=== PATIENT | female | born 2005 | race Caucasian/White ===

== ENCOUNTER 2024-07-21 20:34 | Outpatient (REF) | payer OTHER, SELFPAY ==
[2024-07-26 13:08] LABS: Age Gdln ACOG Testing Note (.); IGP, rfx Aptima HPV ASCU Note (.)
== END 2024-07-21 20:35 | disposition home or self-care (01) ==
LOC: LAB 20:34
PROVIDERS: PCP Family Medicine; Visit Provider Obstetrics & Gynecology
DX: Z01.419 Encounter for gynecological examination (general) (routine) without abnormal findings (principal)
CPT/HCPCS: 88175

== ENCOUNTER 2025-03-06 21:08 | Emergency (ER) | payer OTHER, SELFPAY ==
[2025-03-06 21:10] VITALS: BP 142/80; PULSE 80; TEMP 37.1; O2SAT 96; BMI 21.3
--- OUTSIDE RECORDS SUMMARY | 2025-03-06 21:15 | XMS_ITS | Clinical Summary ---
Author Organization [facility] Address [address] [place] [address] Care Team Providers Care Cooperer Name Role Phone Michelle Hackett NP Unavailable [phone] Allergies Active Allergy Reactions Criticality Noted Date Comments Penicillin G Rash Low 01/30/2024 Penicillins Rash Low 07/09/2023 Prednisone 11/27/2023 Other Reaction(s): Hives Medications Lo Loestrin Fe 1 MG-10 MCG / 10 MCG tabletIndications: Encounter for contraceptive management, unspecified type TAKE 1 TABLET BY MOUTH ONCE DAILY IN THE MORNING 28 tablet 3 Active Hospital, Clinic, or Other Facility Administered Medication Ordered Dose Route Frequency Start Date End Date Status methylPREDNISolone acetate (DEPO-Medrol) injection 20 mgIndications:Trigge r index finger of right hand 20 mg IX Once PRN Procedure 02/17/2025 02/17/2025 Ended Active Problems No known active problems Encounters Date Type Department Care Team Description 02/16/2025 2:30 PM EDT Office Visit [facility] [address] [place] [address] Raoul Gottlieb NP Trigger index finger of right hand (Primary Dx); Finger pain, right 02/16/2025 Bamboo flowsheet [facility] [place] [place] [address] Raoul Gottlieb NP 02/16/2025 Travel from Last 3 Months Family History Medical History Relation Name Comments Cancer Other 1 Both sides Hypertension Other 1 Both sides Thyroid disease Other 2 Dad's side Relation Name Status Comments Other 1 Both sides Other 2 Dad's side Social History Tobacco Use Types Packs/Day Years Used Date Smoking Tobacco: Never Assessed Comments No Sex and Gender Information Value Date Recorded Sex Assigned at Not on file Legal Sex Female 6:50 PM EDT Gender Identity Not on file Sexual Orientation Not on file Last Filed Vital Signs Vital Sign Reading Time Taken Comments Blood Pressure 100/68 07/21/2024 9:54 AM EDT Pulse - - Temperature - - Respiratory Rate - - Oxygen Saturation - - Inhaled Oxygen Concentration - - Weight 64.4 kg (142 lb) 07/21/2024 9:54 AM EDT Height 162.6 cm (5' 4 ) 11/27/2023 11:02 AM EST Body Mass Index 24.37 11/27/2023 11:02 AM EST Plan of Treatment Upcoming Encounters Date Type Department Care Team (Late st Contact Info) Description 07/23/2025 8:30 AM EDT Office Visit [facility] [address] [place] [address] Sonu Miller, DO [address] [place] [address] Procedures Procedure Name Priority Date/Time Associated Diagnosis Comments CT INJECTION 1 TENDON SHEATH/LIGAMENT APONEUROSIS Routine 02/17/2025 9:44 AM EDT Trigger index finger of right hand from Last 3 Months Results * CT INJECTION 1 TENDON SHEATH/LIGAMENT APONEUROSIS (02/17/2025 9:44 AM EDT) Narrative Raoul Gottlieb NP - 02/17/2025 9:44 AM EDT Raoul Gottlieb NP 02/17/2025 9:48 AM Hand / UE Inj/Asp: R index A1 for trigger finger on 02/17/2025 9:44 AM Indications: pain Details: 24 G needle, volar approach Medications: 20 mg methylPREDNISolone acetate 40 MG/ML Outcome: tolerated well, no immediate complications Site cleaned with isopropyl alcohol Procedure, treatment alternatives, risks and benefits explained, specific risks discussed. Consent was given by the patient. us Raoul Gottlieb NP IN CLINIC/BEDSIDE ORDERABLES Fi nal Result from Last 3 Months Insurance * Guarantor: Gregoria Doran Account Type Relation to Patient Date of Phone Billing Address Personal/Family Self 2005 [address] [place] [address] [employer] Care Teams Cooperer Relationship Specialty Start Date End Date Michelle Hackett NP [address] [place] [address] Referring Physician Family Medicine 08/25/24
--- OUTSIDE RECORDS SUMMARY | 2025-03-06 21:16 | XMS_ITS | CCD ---
Author Organization [facility] CliniSymd Care Team Providers Care [employer] Instrument Repairer Name Role Phone Svetlana Medrano Unavailable Suri Jiang Unavailable PADILLA ., DR ROMMEL Suarez Primary Care Unavailable PADILLA ., DR ROMMEL Suarez Consulting Unavailable PADILLA ., DR ROMMEL Suarez Attending Unavailable PADILLA ., DR ROMMEL Suarez Admitting Unavailable PADILLA ., DR ROMMEL Suarez Primary Care Unavailable PADILLA ., DR ROMMEL Suarez Consulting Unavailable PADILLA ., DR ROMMEL Suarez Attending Unavailable PADILLA ., DR ROMMEL Suarez Admitting Unavailable PADILLA ., DR ROMMEL Suarez Admitting Unavailable PADILLA ., DR ROMMEL Suarez Primary Care Unavailable PADILLA ., DR ROMMEL Suarez Consulting Unavailable PADILLA ., DR ROMMEL Suarez Attending Unavailable Arabella Lazcano Unavailable Allan Svetlana Unavailable Hector Ramos Attending Unavailab Hector Florian Admitting Unavailab Neftali Kimble Attending Unavailable Neftali Clayton Attending Unavailable Neftali Clayton Attending Unavailable Neftali Clayton Attending Unavailable Neftali Clayton Attending Unavailable Julieth Fernandez Attending Unavailable Neftali Clayton Attending Unavailable Julieth Fernandez Attending Unavailable Neftali Clayton Attending Unavailable Neftali Clayton Attending Unavailable Julieth Fernandez Attending Unavailable Neftali Clayton Attending Unavailable Julieth Fernandez Attending Unavailable Neftali Clayton Attending Unavailable Neftali Clayton MD Primary Care Provider [phone] Lew FOOTE, Michelle Johnson Unavailable SLEMA LORD Attending Unavailable ROCHELLE MILLER Attending Unavailable AGUILA ULLOA Attending Unavailable Allergies Allergy Classification Reported Allergen(s) Allergy Type Date of Onset Reaction(s) Facility (1 source) Penicillin V Drug Allergy rash [facility] Other (3 sources) Penicillins Drug allergy (disorder) 3 rash [facility] Repository (7 sources) Penicillin; Translations: [penicillin] Drug Allergy rash [facility] Repository (5 sources) predniSONE; Translations: [predniSONE] Drug Allergy 5 hives [facility] Repository (1 source) Penicillins Drug allergy (disorder) 4 [facility] Repository (1 source) predniSONE Drug Allergy 4 [facility] Repository (10 sources) Penicillin G Drug Allergy 4 [facility] (10 sources) Penicillins Propensity to adverse reactions 3 Rash [facility] Work Phone: (10 sources) Prednisone Propensity to adverse reactions 4 [facility] Healthcare Medications Current Medications Medication Drug Class(es) Dates Sig (Normalized) Sig (Original) busPIRone hydrochloride 5 mg oral tablet (4 sources) Start: 08-04-2024 End: 08-28-2024 take 1 tablet by mouth twice daily Buspirone 5 mg tablet Active 5 MG PO Twice daily 60 August 28, 2024 11:13am clindamycin 300 mg oral capsule (2 sources) Lincosamide Antibacterial Start: 10-10-2023 take 1 capsule by mouth every eight hours Clindamycin HCl 300 MG 1 cap(s) Orally tid for 10 day(s) Oct, Active Ethinyl Estradiol / Ferrous fumarate / Norethindrone (17 sources) Estrogen Start: 10-06-2024 take 1 tablet by mouth once daily in the morning Lo Loestrin Fe 1 MG-10 MCG / 10 MCG tablet Indications: Encounter for contraceptive management, unspecified type TAKE 1 TABLET BY MOUTH ONCE DAILY IN THE MORNING 28 tablet 3 10/06/2024 Active Start: 04-17-2024 End: 12-11-2024 take 1 tablet by mouth once daily Norethindrone-E.Estradiol-Iron (Lo Loest rin Fe) 1 mg-10 mcg (24)/10 mcg (2) tablet Discontinued 1 TAB PO Daily April 17, 2024 12:00am December 11, 2024 10:01am Start: 11-27-2023 End: 11-26-2024 take 1 tablet by mouth in the morning norethindrone-ethinyl estradiol-iron (Lo Loestrin Fe) 1 MG-10 MCG / 10 MCG tablet Indications: Encounter for contraceptive management, unspecified type Take 1 tablet by mouth in the morning. Take 1 tablet by mouth daily. 28 tablet 11 11/27/2023 11/26/2024 Active take 1 tablet by nadia th once daily Baljeet Fe 1/20 1-20 MG-MCG TAKE 1 TABLET BY MOUTH ONCE DAILY Oral for 28 Days Active take 1 tablet by nadia th once daily Baljeet Fe 1/20 1-20 MG-MCG TAKE 1 TABLET BY MOUTH ONCE DAILY Oral for 28 Days Active FLUoxetine 10 mg oral capsule (4 sources) Serotonin Reuptake Inhibitor Start: 04-24-2024 End: 05-13-2024 take 1 capsule by mouth once daily Fluoxetine 10 mg capsule Active 10 MG PO Daily 90 90 May 13, 2024 9:41am hydrOXYzine hydrochloride 10 mg oral tablet (6 sources) Antihistamine Start: 11-23-2022 take 1 tablet by mouth twice daily as needed hydrOXYzine HCl 10 MG 1 tablet as needed Orally twice daily for 10 day(s) Nov, Active ibuprofen 800 mg oral tablet (1 source) Nonsteroidal Anti-inflammatory Drug Start: 10-11-2023 take 1 tablet by mouth three times daily at mealtime as needed Ibuprofen 800 MG 1 tablet with food or milk as needed Orally Three times a day for 7 days Oct, Active Levonorgestrel-Ethi nyl Estrad (Twirla) 120-30 mcg/24 hr patch weekly (1 source) Start: 12-29-2024 Levonorgestrel-Et hinyl Estrad (Twirla) 120-30 mcg/24 hr patch weekly Active 1 PATCH TRANSDERML Q7D December 29, 2024 12:00am apply once weekly for 3 weeks of a 4-week cycle montelukast 10 mg oral tablet (2 sources) Leukotriene Receptor Antagonist Start: 05-30-2024 take 1 tablet by mouth once daily Montelukast (Singulair) 10 mg tablet Active 10 MG PO Daily May 30, 2024 12:00am naproxen 500 mg oral tablet (1 source) Nonsteroidal Anti-inflammatory Drug Start: 02-05-2025 take 1 tablet by mouth twice daily as needed for pain Naproxen 500 mg tablet Active 500 MG PO Twice daily as needed for pain 60 February 05, 2025 12:00am Completed/Discontinued Medications Medication Drug Class(es) Dates Sig (Normalized) Sig (Original) azithromycin 250 mg oral tablet (2 sources) Macrolide Antimicrobial Start: 12-11-2024 End: 02-05-2025 Azithromycin 250 mg tablet Discontinued 0 PO daily 6 December 11, 2024 1:00am February 05, 2025 11:19am Take 2 on day 1 and then take 1 for the next 4 days (days 2-5) cefdinir 300 mg oral capsule (2 sources) Cephalosporin Antibacterial Start: 06-05-2024 End: 08-12-2024 take 1 capsule by mouth twice daily Cefdinir 300 mg capsule Discontinued 300 MG PO Twice daily 27 07June 05, 2024 12:00am August 12, 2024 10:00am cephalexin 500 mg oral capsule (9 sources) Cephalosporin Antibacterial Start: 04-18-2023 take 1 capsule by mouth every eight hours Cephalexin 500 MG 1 capsule Orally tid for 10 day(s) Jun, Not-Taking/PRN doxycycline monohydrate 100 mg oral capsule (7 sources) Tetracycline-class Drug Start: 07-04-2022 take 1 capsule by mouth every twelve hours Doxycycline Monohydrate 100 MG 1 capsule Orally every 12 hrs for 7 days Jun, Not-Taking/PRN erythromycin 0.005 mg/mg ophthalmic ointment (2 sources) Macrolide, Macrolide Antimicrobial Start: 04-24-2024 End: 05-13-2024 Erythromycin 5 mg/gram (0.5 %) ointment Discontinued 0.5 INCH EYE-BOTH Twice daily 3.5 April 24, 2024 12:00am May 13, 2024 9:29am escitalopram 20 mg oral tablet (12 sources) Serotonin Reuptake Inhibitor Start: 07-02-2023 End: 07-21-2024 take 1 tablet by mouth once daily Escitalopram Oxalate 20 mg tablet Discontinued 20 MG PO Daily April 17, 2024 12:00am April 24, 2024 9:26am take 1 tablet by nadia once daily as needed Escitalopram Oxalate 10 MG TAKE 1 TABLET BY MOUTH DAILY Oral for 30 Days Not-Taking/PRN 168 hr ethinyl estradiol 0.34751 mg/hr / norelgestromin 0.62404 mg/hr transdermal system (1 source) Progestin, Estrogen Start: 12-11-2024 End: 12-23-2024 Norelgestromin-Ethin.Estradi ol (Zafemy) 150-35 mcg/24 hr patch weekly Discontinued 0 .ROUTE .COMPLEX 3 December 11, 2024 12:52pm December 23, 2024 7:52am APPLY 1 PATCH TO SKIN ONCE WEEKLY FOR 3 WEEKS, OF A 4 WEEK CYCLE. fluticasone propionate 0.05 mg/actuat metered dose nasal spray (3 sources) Corticosteroid Start: 07-16-2023 take 2 spray(s) nasal route once daily as needed Fluticasone Propionate 50 MCG/ACT 2 sprays Nasally Once a day for 14 day(s) Jul, Not-Taking/PRN Start: 07-16-2023 take 2 spray(s) nasa l route once daily Fluticasone Propionate 50 MCG/ACT 2 sprays Nasally Once a day for 14 day(s) Jul, Active 1 ml methylPREDNISolone acetate 40 mg/ml injection (10 sources) Corticosteroid Start: 02-17-2025 End: 02-17-2025 methylPREDNISolone acetate (DEPO-Medrol) injection 20 mg Start: 02-17-2025 End: 02-17-2025 20 mg, Intra-articular, Once PRN Procedure, Starting on Sun02/17/25 at 0944, For 1 dose Start: 08-25-2024 End: 08-25-2024 methylPREDNISolone Acetate (DEPO-Medrol) injection 20 mg Start: 08-25-2024 End: 08-25-2024 20 mg, Once PRN Procedure, S tarting on Sun08/25/24 at 0856, For 1 dose Start: 08-12-2024 End: 08-14-2024 take 1 tablet by mouth once Methylprednisolone (Medrol (Jose)) 4 mg tablets,dose pack Discontinued 0 PO per package directions August 12, 2024 1:00am August 14, 2024 4:06pm PO PER PKG DIR mupirocin 0.02 mg/mg topical ointment (7 sources) RNA Synthetase Inhibitor Antibacterial Start: 07-04-2022 Mupirocin 2 % 1 application to affected area Externally once per day for 7 days Jun, Not-Taking/PRN Norelgestromin-Ethi n.Estradiol (Zafemy) 150-35 mcg/24 hr patch weekly (1 source) Start: 12-23-2024 End: 12-29-2024 Norelgestromin-Ethin.Es tradiol (Zafemy) 150-35 mcg/24 hr patch weekly Discontinued 0 .ROUTE .COMPLEX December 23, 2024 7:52am December 29, 2024 1:06pm APPLY 1 PATCH TO SKIN ONCE WEEKLY FOR 3 WEEKS, OF A 4 WEEK CYCLE. Norelgestromin-Ethi n.Estradiol 150-35 mcg/24 hr patch weekly (2 sources) Start: 12-11-2024 End: 12-11-2024 Norelgestromin-Ethin.Es tradiol 150-35 mcg/24 hr patch weekly Discontinued 1 PATCH TRANSDERML every week December 11, 2024 1:00am December 11, 2024 12:52pm apply once weekly for 3 weeks of a 4-week cycle Start: 12-11-2024 Norelgestromin -Ethin.Estradiol 150-35 mcg/24 hr patch weekly Active 1 PATCH TRANSDERML every week December 11, 2024 1:00am apply once weekly for 3 weeks of a 4-week cycle Nortrel 0.5/35 (28) (7 sources) Nortrel 0.5/35 ( 28) Not-Taking/PRN Nortrel 0.5/35 ( 28) Not-Taking Nortrel 0.5/35 ( 28) Active ondansetron 4 mg oral tablet (6 sources) Serotonin-3 Receptor Antagonist Start: 11-23-2022 take 1 tablet by mouth every eight hours as needed Zofran ODT 4 MG 1 tablet on the tongue and allow to dissolve Orally every 8 hrs as needed for 4 days Nov, Not-Taking/PRN predniSONE 10 mg oral tablet (5 sources) Start: 08-14-2024 End: 12-11-2024 take 0.5 tablet by mouth once daily Prednisone 10 mg tablet Discontinued 10 MG PO daily August 14, 2024 1:00am December 11, 2024 9:34am Take 40 mg for 2 days, 30 mg for 2 days, 20 mg for 2 days, 10 mg for 2 days, 1/2 tablet for 2 days Start: 07-16-2023 take 1 tablet by nadia th every twelve hours predniSONE 20 MG 1 tablet Orally bid for 5 day(s) Jul, Not-Taking/PRN Problems Active Problems Problem Classification Problem Date Documented Date Episodic/Chronic Anxiety disorders (9 sources) Generalized anxiety disorder; Translations: [Generalized anxiety disorder] Chronic Conditions associated with dizziness or vertigo (2 sources) Dizziness; Translations: [Dizziness and giddiness] 04-24-2024 Episodic Contraceptive and procreative management (4 sources) Patient encounter status; Translations: [Encounter for contraceptive management, unspecified] 12-11-2024 Episodic Disorders of teeth and jaw (2 sources) Dental caries, unspecified; Translations: [Other specified disorders of teeth and supporting structures] Episodic E Codes: Natural/environment (1 source) Bitten by cat, initial encounter Episodic Malaise and fatigue (4 sources) Other fatigue; Translations: [OTHER FATIGUE] Onset: 12-04-2022 Episodic Mood disorders (2 sources) Depressive disorder; Translations: [Depression] 04-24-2024 Chronic Nausea and vomiting (1 source) Nausea Episodic Other connective tissue disease (4 sources) Pain in finger of right hand; Translations: [Pain in right finger(s)] 08-24-2024 Episodic Other connective tissue disease (7 sources) Triggering of digit; Translations: [Trigger finger, right index finger] 08-25-2024 Episodic Other connective tissue disease (2 sources) Tendinitis; Translations: [Enthesopathy, unspecified] 08-12-2024 Episodic Other connective tissue disease (1 source) Trigger finger, unspecified finger; Translations: [Trigger finger (acquired)] 02-05-2025 Episodic Other connective tissue disease (1 source) Enthesopathy, unspecified; Translations: [Enthesopathy of unspecified site] 02-05-2025 Episodic Other eye disorders (2 sources) Disorder of eye; Translations: [Other specified disorders of eye and adnexa] 04-24-2024 Episodic Other nutritional; endocrine; and metabolic disorders (2 sources) Overweight in adulthood with body mass index of 25 or more but less than 30; Translations: [Body mass index (BMI) 26.0-26.9, adult] 05-13-2024 Episodic Other screening for suspected conditions (not mental disorders or infectious disease) (4 sources) Encounter for screening for malignant neoplasm of cervix; Translations: [ENC SCREENING MALIG NEOPLASM CERV] Onset: 10-04-2022 Episodic Other upper respiratory disease (2 sources) Seasonal allergy; Translations: [Other seasonal allergic rhinitis] 05-30-2024 Chronic Other upper respiratory infections (4 sources) Maxillary sinusitis; Translations: [Chronic maxillary sinusitis] 06-05-2024 Chronic Other upper respiratory infections (1 source) Acute sinusitis, unspecified Episodic Residual codes; unclassified (2 sources) Flushing; Translations: [Flushing] 04-24-2024 Episodic Skin and subcutaneous tissue infections (3 sources) Cellulitis of unspecified part of limb; Translations: [Cellulitis of left lower limb] Episodic Past or Other Problems Problem Classification Problem Date Documented Da te Episodic/Chronic Immunizations and screening for infectious disease (1 source) Contact with and (suspected) exposure to other viral communicable diseases; Translations: [Contact with and (suspected) exposure to other viral communicable diseases Z20.828] Onset: 07-14-2021 Resolved: 07-14-2021 Episodic Unclassified (1 source) Contact with and (suspected) exposure to covid-19 Z20.822 Results Test Name Value Interpretation Reference Range Facil ity No Panel Informationon 02-17 Selma Lord NP 02/17/2025 9:48 AM Hand / UE Inj/Asp: R index A1 for trigger finger on 02/17/2025 9:44 AM Indications: pain Details: 24 G needle, volar approach Medications: 20 mg methylPREDNISolone acetate 40 MG/ML Outcome: tolerated well, no immediate complications Site cleaned with isopropyl alcohol Procedure, treatment alternatives, risks and benefits explained, specific risks discussed. Consent was given by the patient. [facility] Influenza virus B Ag [Presen ce] in Upper respiratory specimen by Rapid immunoassayon 12-11-2024 FLUBV Ag IA.rapid Ql (Nph) Influenza virus B Ag [Presence] in Upper respiratory specimen by Rapid immunoassay [facility] No Panel Informationon 12-11 Influenza Type A (Rapid) Negative [facility] POC SARS CoV-2 Antigen Negative [facility] No Panel Informationon 08-25 Aguila Ulloa NP 08/25/2024 9:00 AM Tendon Sheath Inj (CPT 33093 Only): R index A1 on 08/25/2024 8:56 AM Indications: pain Details: 25 G needle, volar approach Medications: 20 mg methylPREDNISolone Acetate 20 MG/ML Immediately prior to procedure a time out was called to verify the correct patient, procedure, equipment, community support worker and site/side marked as required. Patient was prepped and draped in the usual sterile fashion. [facility] IGP,APTIMA HPV,AGE GDLNon AGE GDLN ACOG TESTING Note . [facility] Comment on above: TESTS RESULT FLAG UN ITS REF RANGE LAB Clinician Provided Cytology Information Source.............Cervix;Endocervix No. of containers..01 ThinPrep Vial Age Algo ACOG Sherrie... -3 11 FLAG LEGEND: L-Low Normal,H-High Normal,LL-Alert Low,HH-Alert High <-Panic Low,>-Panic High,A-Abnormal,AA-Critical Abnormal Performed at: 01 =G [facility] [id number] Bria Owens MD, IGP, RFX APTIMA HPV ASCU Note . [facility] Comment on above: TESTS RESULT FLAG UN ITS REF RANGE LAB DIAGNOSIS: 02 NEGATIVE FOR INTRAEPITHELIAL LESION OR MALIGNANCY. Specimen adequacy: 02 Satisfactory for evaluation. Endocervical and/or squamous metaplastic cells (endocervical component) are present. Performed by: Jayla Braswell [facility] [place] . 02 Note: Note 02 The Pap smear is a screening test designed to aid in the detection of premalignant and malignant conditions of the uterine cervix. It is not a diagnostic procedure and should not be used as the sole means of detecting cervical cancer. Both false-positive and false-negative reports do occur. Test Methodology: Note 02 This liquid based ThinPrep(R) pap test was screened with the use of an image guided system. . 02 The HPV DNA reflex criteria were not met with this specimen result therefore, no HPV testing was performed. FLAG LEGEND: L-Low Normal,H-High Normal,LL-Alert Low,HH-Alert High <-Panic Low,>-Panic High,A-Abnormal,AA-Critical Abnormal Performed at: [address] [facility] [address] [phone] Bria Owens MD, Performed at: = - [facility] [address] [id number] Sr Community Manager: Bria Owens MD, Phone: [phone] Performed at: [facility] [id number] Sr Community Manager: Bria Owens MD, Phone: [phone] [facility] ENDOCERVIX [facility] Physician Referralon 024 Physician Referral [id number]#1 .00TIFF Normal [facility] Physician Referralon 024 Physician Referral [id number]# 1.00TIFF Normal [facility] Physician Referralon 024 Physician Referral [id number]#1. 00TIFF Normal [facility] Ambulatory Visit Summaryon 11-28-2022 Ambulatory Visit Summary STEPHON KHAN :2005 Visit Date:09/27/2023 Ambulatory Visit Instructions Your Diagnosis Trigger finger BMI 24.0-24.9, adult Hand pain Nonsmoker Acute URI Your Care Team Attending Physician - Neftali Clayton MD Primary Care Physician - Neftali Clayton MD This Is Your Medications List escitalopram (escitalopram 20 mg Tab) ethinyl estradiol-norethindro ne (Nortrel oral tablet) hydrOXYzine (hydrOXYzine hydrochloride 10 mg Tab) meloxicam (meloxicam 15 mg Tab) methylPREDNISolone (Medrol Dosepack 4 mg Tab) triamcinolone topical (triamcinolone Top 0.1% Crm 15 gram) Procedures Performed Appendectomy (10/08/2013). Discharge Vitals Temperature (Temporal Artery) 36.7 ?C Heart Rate (Peripheral) 88 Respiratory Rate 16 Blood Pressure 102/70 Height 162 cm Height 64 in Weight 63.9 kg Weight 140.58 lb BMI 24.35 What to do next Scheduled Follow-Up Appointments Sunday 8:00 AM EST With: Neftali Clayton MD Where: [facility] [place] Normal [facility] Family Medicine Office/Clini c Noteon 09-27-2023 Family Medicine Office/Clinic Note HPI Staff Kinney is a 18 year old female presenting for follow up trigger fingers Injected at 08/16 OV and OV 1115 was throbbing and not improving, txed with medrol dosepak and NSAIDs Finger not doing well, started to throb yesterday and it's throbbing this morning. flu: refused for the season questions/concerns: has drainage down the throat and bright yellow nasal drainage and thinks she might have a sinus infection History of Present Illness Patient is back with pain in the thumb. Patient states the pain was relieved and then after continued use of opening pill bottles at work she started having pain again. For more information please see staff HPI. Review of Systems PHQ Score Initial Depression Screen Score: 1 SCORE Physical Exam Vitals & Measurements T: 36.7 ?C(Temporal Artery) HR: 88(Peripheral) RR: 16 BP: 102/70 SpO2: 99% HT: 64 in HT: 162 cm WT: 63.9 kg WT: 140.58 lb BMI: 24.35 General: alert, no acute distress ENMT: oral mucosa moist, no erythema of the soft palate Cardiovascular: regular rate and rhythm, normal peripheral perfusion Respiratory: Lungs CTA, respirations non labored Extremities: no deformity, no trauma Neurological: oriented x 4, LOC appropriate for age, CN II-XII intact, motor strength equal & normal bilaterally, speech normal Patient is tender to palpation on the thenar eminence of the right hand. No swelling noted. Patient may have had 1 episode of triggering versus clicking of the joint. Patient has full range of motion of the thumb. Patient continues to have relief of the triggering of the second and third finger of that hand as well. Assessment/Plan 1. Trigger finger (M65.30: Trigger finger, unspecified finger) At this time I do not believe the pain in the thumb is from trigger finger. Will do occupational therapy to help. Will do a Medrol Dosepak to help not only the pain in the thumb but also from the acute URI. Will have the patient follow-up after occupational therapy. Ordered: methylPREDNISolone, = 1 packet(s), Oral, As Directed, as directed on package labeling, X 6 day(s), # 21 tab(s), Refills(s) 0, Pharmacy: [facility], 162, cm, 09/27/23 7:26:00 EST, Height/Length Dosing, 63.9, kg, 09/27/23 7:26:00 EST, Weight Dosing Body Mass Index (BMI) documented 3008F Current tobacco non-user 1036F Depression Screening Negative 3352F Influenza immunization status assessed 1030F Most recent diastolic blood pressure <80 mm Hg 3078F Occupational Therapy Evaluation - External Facility Systolic BP <130 mm Hg (Most Recent) 3074F 2. BMI 24.0-24.9, adult (Z68.24: Body mass index [BMI] 24.0-24.9, adult) BMI education uploaded to the chart Ordered: methylPREDNISolone, = 1 packet(s), Oral, As Directed, as directed on package labeling, X 6 day(s), # 21 tab(s), Refills(s) 0, Pharmacy: [facility], 162, cm, 09/27/23 7:26:00 EST, Height/Length Dosing, 63.9, kg, 09/27/23 7:26:00 EST, Weight Dosing Body Mass Index (BMI) documented 3008F Current tobacco non-user 1036F Depression Screening Negative 3352F Influenza immunization status assessed 1030F Most recent diastolic blood pressure <80 mm Hg 3078F Occupational Therapy Evaluation - External Facility Systolic BP <130 mm Hg (Most Recent) 3074F 3. Hand pain (M79.643: Pain in unspecified hand) Will send to occupational therapy and will treat as per #1. Ordered: methylPREDNISolone, = 1 packet(s), Oral, As Directed, as directed on package labeling, X 6 day(s), # 21 tab(s), Refills(s) 0, Pharmacy: [facility], 162, cm, 09/27/23 7:26:00 EST, Height/Length Dosing, 63.9, kg, 09/27/23 7:26:00 EST, Weight Dosing Occupational Therapy Evaluation - External Facility 4. Nonsmoker (Z78.9: Other specified health status) Please continue not to smoke Ordered: methylPREDNISolone, = 1 packet(s), Oral, As Directed, as directed on package labeling, X 6 day(s), # 21 tab(s), Refills(s) 0, Pharmacy: [facility], 162, cm, 09/27/23 7:26:00 EST, Height/Length Dosing, 63.9, kg, 09/27/23 7:26:00 EST, Weight Dosing Body Mass Index (BMI) documented 3008F Current tobacco non-user 1036F Depression Screening Negative 3352F Influenza immunization status assessed 1030F Most recent diastolic blood pressure <80 mm Hg 3078F Occupational Therapy Evaluation - External Facility Systolic BP <130 mm Hg (Most Recent) 3074F 5. Acute URI (J06.9: Acute upper respiratory infection, unspecified) COVID test is negative. We will use a Medrol Dosepak to help with drying up the mucus. Follow-up if symptoms get worse. Ordered: methylPREDNISolone, = 1 packet(s), Oral, As Directed, as directed on package labeling, X 6 day(s), # 21 tab(s), Refills(s) 0, Pharmacy: [facility], 162, cm, 09/27/23 7:26:00 EST, Height/Length Dosing, 63.9, kg, 09/27/23 7:26:00 EST, Weight Dosing Body Mass Index (BMI) documented 3008F Current tobacco non-user 1036F Depression Screening Negative 3352F Influenza immun (more content not included)... Normal [facility] Comment on above: Result Comment: Elec tronically Signed By: Lucio PURVIS, Neftali Dangelo\.br\Date and Time Signed: 09/27/23 07:46 EST Physician Referralon 023 Physician Referral [id number] 1.00TIFF [facility] Ambulatory Visit Summaryon 10-22-2022 Ambulatory Visit Summary STEPHON KHAN :2005 Visit Date:08/22/2023 Ambulatory Visit Instructions Your Diagnosis Hand pain BMI 24.0-24.9, adult Nonsmoker Your Care Team Attending Physician - Neftali Clayton MD Primary Care Physician - Neftali Clayton MD This Is Your Medications List escitalopram (escitalopram 20 mg Tab) methylPREDNISolone (Medrol Dosepack 4 mg Tab) Contact prescribing physician if questions or concerns ethinyl estradiol-norethindro ne (Nortrel oral tablet) hydrOXYzine (hydrOXYzine hydrochloride 10 mg Tab) meloxicam (meloxicam 15 mg Tab) triamcinolone topical (triamcinolone Top 0.1% Crm 15 gram) Procedures Performed Appendectomy (10/08/2013). Discharge Vitals Temperature (Temporal Artery) 37.4 ?C Heart Rate (Peripheral) 68 Respiratory Rate 16 Blood Pressure 132/80 Height 162 cm Height 64 in Weight 63.5 kg Weight 139.7 lb BMI 24.2 What to do next Scheduled Follow-Up Appointments Sunday 8:00 AM EST With: Lucio PURVIS, Neftali Dangelo Where: [facility] Medicine Office/Clini c Noteon 08-22-2023 Family Medicine Office/Clinic Note HPI Staff Stephon is a 18 year old female presenting for follow up right hand injection Acute: has throbbing pain, injected on 08/16 afternoon had a little sharp pain and then Sunday getting pins and needles and it's throbbing now. Last night made it hard to sleep due to the pulsating throbbing pain questions/concerns: LARISA needed her lexapro refilled and it didn't get sent in but meloxicam did and you wanted her off that History of Present Illness Here for worsening pain in her R thumb. Worse with movement. Had the pain before the injection last week but worsened 3 days after. Review of Systems PHQ Score Initial Depression Screen Score: 0 SCORE Physical Exam Vitals & Measurements T: 37.4 ?C(Temporal Artery) HR: 68(Peripheral) RR: 16 BP: 132/80 SpO2: 99% HT: 64 in HT: 162 cm WT: 63.5 kg WT: 139.7 lb BMI: 24.2 Thumb clicks with extension for which the patient is in a lot of pain with Extension. Assessment/Plan 1. Hand pain (M79.643: Pain in unspecified hand) Most likely trigger thumb given clicking over the tendon going from flexion to extension. Will do a medrol dose jose. NSAIDs. If no improvement in 3 days, pt to call us back Ordered: methylPREDNISolone, = 1 packet(s), Oral, As Directed, as directed on package labeling, X 6 day(s), # 21 tab(s), Refills(s) 0, Pharmacy: [facility], 162, cm, 08/22/23 14:04:00 EST, Height/Length Dosing, 63.5, kg, 08/22/23 14:04:00 EST, Weight Dosing Body Mass Index (BMI) documented 3008F Current tobacco non-user 1036F Depression Screening Negative 3352F Influenza immunization status assessed 1030F Most recent diastolic blood pressure 80-89 mm Hg 3079F Systolic BP 130-139 mm Hg (Most Recent) 3075F 2. BMI 24.0-24.9, adult (Z68.24: Body mass index [BMI] 24.0-24.9, adult) - BMI education given Ordered: methylPREDNISolone, = 1 packet(s), Oral, As Directed, as directed on package labeling, X 6 day(s), # 21 tab(s), Refills(s) 0, Pharmacy: [facility], 162, cm, 08/22/23 14:04:00 EST, Height/Length Dosing, 63.5, kg, 08/22/23 14:04:00 EST, Weight Dosing Body Mass Index (BMI) documented 3008F Current tobacco non-user 1036F Depression Screening Negative 3352F Influenza immunization status assessed 1030F Most recent diastolic blood pressure 80-89 mm Hg 3079F Systolic BP 130-139 mm Hg (Most Recent) 3075F 3. Nonsmoker (Z78.9: Other specified health status) - Please continue to not smoke. Ordered: escitalopram, 20 mg = 1 tab(s), Oral, Daily, # 90 tab(s), Refills(s) 0, Pharmacy: [facility], 162, cm, 08/22/23 14:04:00 EST, Height/Length Dosing, 63.5, kg, 08/22/23 14:04:00 EST, Weight Dosing methylPREDNISolone, = 1 packet(s), Oral, As Directed, as directed on package labeling, X 6 day(s), # 21 tab(s), Refills(s) 0, Pharmacy: [facility], 162, cm, 08/22/23 14:04:00 EST, Height/Length Dosing, 63.5, kg, 08/22/23 14:04:00 EST, Weight Dosing Body Mass Index (BMI) documented 3008F Current tobacco non-user 1036F Depression Screening Negative 3352F Influenza immunization status assessed 1030F Most recent diastolic blood pressure 80-89 mm Hg 3079F Systolic BP 130-139 mm Hg (Most Recent) 3075F Follow-up No qualifying data available Problem List/Past Medical History Ongoing Anxiety and depression Bereavement BMI less than 19,adult Contact dermatitis Dysmenorrhea Hand pain Non-smoker Panic attacks Picking own skin Primary insomnia Seasonal allergies Trigger finger Yeast vaginitis Historical No qualifying data Procedure/Surgical History Appendectomy (10/08/2013). Medications escitalopram 20 mg Tab, 20 mg= 1 tab(s), Oral, Daily hydrOXYzine hydrochloride 10 mg Tab, 10 mg= 1 tab(s), Oral, QID, PRN, 1 refills Medrol Dosepack 4 mg Tab, 1 packet(s), Oral, As Directed meloxicam 15 mg Tab, 15 mg= 1 tab(s), Oral, Daily Nortrel /04/13 oral tablet, 35 mcg= 1 tab(s), Oral, Daily, 1 refills triamcinolone Top 0.1% Crm 15 gram, 1 marylou, Topical, TID Allergies penicillin (Rash) predniSONE (Hives) Social History Alcohol - Denies Alcohol Use, 01/18/2023 Substance Abuse - Denies Substance Abuse, 01/18/2023 Tobacco Never (less than 100 in lifetime) Tobacco Use:. Never Smokeless Tobacco Use:. Household tobacco concerns: No., 08/22/2023 Family History Family history is negative Immunizations Vaccine Date Status Comments influenza virus vaccine, inactivated - Not Given Patient Refuses SARS-CoV-2 mRNA (tocalen 5y-11y) vac - Not Given Postpone due to refusal [facility] Comment on above: Result Comment: Elec tronically Signed By: Neftali Clayton MD\.br\Date and Time Signed: 08/22/23 14:31 EST Ambulatory Visit Summaryon 1 10-16-2022 Ambulatory Visit Summary STEPHON KHAN :2005 Visit Date:08/16/2023 Ambulatory Visit Instructions Your Diagnosis Trigger finger, unspecified finger, unspecified laterality Panic attacks Anxiety and depression Bereavement Depression, unspecified Your Care Team Attending Physician - Neftali Clayton MD Primary Care Physician - Neftali Clayton MD This Is Your Medications List escitalopram (escitalopram 20 mg Tab) ethinyl estradiol-norethindro ne (Nortrel oral tablet) hydrOXYzine (hydrOXYzine hydrochloride 10 mg Tab) meloxicam (meloxicam 15 mg Tab) triamcinolone topical (triamcinolone Top 0.1% Crm 15 gram) Procedures Performed Appendectomy (10/08/2013). Discharge Vitals Temperature (Temporal Artery) 37.0 ?C Heart Rate (Peripheral) 84 Respiratory Rate 16 Blood Pressure 112/70 Height 162 cm Height 64 in Weight 63.8 kg Weight 140.36 lb BMI 24.31 What to do next Scheduled Follow-Up Appointments Sunday 8:00 AM EST With: Neftali Clayton MD Where: [facility] Medicine Office/Clini c Noteon 08-16-2023 Family Medicine Office/Clinic Note HPI Staff Stephon is a 18 year old female presenting for follow up finger Acute: finger still bothering her needs it injected under right index finger flu: refused questions/concerns: needs a refill of the lexapro and if to continue meloxicam will need that refilled also Just lost grandfather this morning History of Present Illness Patient presents for trigger finger injection today. Patient tried conservative management without any improvement. Patient also is asking for refill on her anxiety and depression medication. Patient's grandfather this morning and patient is doing well at this time. Physical Exam Vitals & Measurements T: 37.0 ?C(Temporal Artery) HR: 84(Peripheral) RR: 16 BP: 112/70 SpO2: 99% HT: 64 in HT: 162 cm WT: 63.8 kg WT: 140.36 lb BMI: 24.31 Procedure note Maximum area of triggering at the base of the index finger was identified. 20 mg of triamcinolone and 0.5 cc of 1% lidocaine was injected in that area. This was after getting verbal consent with my nurse in the room. Area was cleaned with alcohol and anesthetic was provided using ethylene chloride. Patient achieved immediate pain relief in the area. Patient had good movement in the area with no blood loss noted. After the procedure the area was cleaned again with alcohol and a Band-Aid was applied. Patient was moving the hand with immediate pain relief. Assessment/Plan 1. Trigger finger, unspecified finger, unspecified laterality (M65.30: Trigger finger, unspecified finger) ? Per procedure note. -Precaution and post procedure care instructions discussed in detail. -Follow-up as needed Ordered: triamcinolone, 10 mg = 1 mL, IntraMuscular, Once, Stop date 08/16/23 9:11:00 EST, Routine, Start date 08/16/23 9:11:00 EST, 08/16/23 9:11:00 EST Body Mass Index (BMI) documented 3008F Current tobacco non-user 1036F Depression Screening Negative 3352F Influenza immunization status assessed 1030F Inj/sng[place] [facility] [place] Most recent diastolic blood pressure <80 mm Hg 3078F Systolic BP <130 mm Hg (Most Recent) 3074F TELEHE[facility] Office Visit Level 3 Est 36857 2. Panic attacks (F41.0: Panic disorder [episodic paroxysmal anxiety]) - We will refill medication at this time. -Very well controlled. Ordered: triamcinolone, 10 mg = 1 mL, IntraMuscular, Once, Stop date 08/16/23 9:11:00 EST, Routine, Start date 08/16/23 9:11:00 EST, 08/16/23 9:11:00 EST Body Mass Index (BMI) documented 3008F Current tobacco non-user 1036F Depression Screening Negative 3352F Influenza immunization status assessed 1030F Inj/sng/mult [place] [facility] [place] Most recent diastolic blood pressure <80 mm Hg 3078F Systolic BP <130 mm Hg (Most Recent) 3074F TELEHEALTH Office Visit Level 3 Est 27326 3. Anxiety and depression (F41.9: Anxiety disorder, unspecified) - Controlled at this time. -We will refill medications today. Ordered: triamcinolone, 10 mg = 1 mL, IntraMuscular, Once, Stop date 08/16/23 9:11:00 EST, Routine, Start date 08/16/23 9:11:00 EST, 08/16/23 9:11:00 EST Body Mass Index (BMI) documented 3008F Current tobacco non-user 1036F Depression Screening Negative 3352F Influenza immunization status assessed 1030F Inj/sng/mult [place]ts[place]09 [facility] [place] Most recent diastolic blood pressure <80 mm Hg 3078F Systolic BP <130 mm Hg (Most Recent) 3074F TELEHEALTH Office Visit Level 3 Est 25342 4. Bereavement (Z63.4: Disappearance and of family member) - With her grandfather's passing being so new we have discussed that if the patient has any concerns moving forward to please let us know. We will follow her back in 3 months. Patient is with her mother today and instructions discussed with mother as well. Ordered: triamcinolone, 10 mg = 1 mL, IntraMuscular, Once, Stop date 08/16/23 9:11:00 EST, Routine, Start date 08/16/23 9:11:00 EST, 08/16/23 9:11:00 EST Body Mass Index (BMI) documented 3008F Current tobacco non-user 1036F Depression Screening Negative 3352F Influenza immunization status assessed 1030F Inj/sng/mult [place]09 [facility] [place] Most recent diastolic blood pressure <80 mm Hg 3078F Systolic BP <130 mm Hg (Most Recent) 3074F TELEHEALTH Office Visit Level 3 Est 15981 5. BMI 24.0-24.9, adult (Z68.24: Body mass index [BMI] 24.0-24.9, adult) - BMI education given Ordered: Body Mass Index (BMI) documented 3008F Current tobacco non-user 1036F Depression Screening Negative 3352F Influenza immunization status assessed 1030F Inj/sng/mult [place]ts[place]09 [facility] [place] Most recent diastolic blood pressure <80 mm Hg 3078F Systolic BP <130 mm Hg (Most Recent) 3074F TELEHEALTH Office Visit Level 3 Est 86433 6. Nonsmoker (Z78.9: Other specified health status) - Please continue for not smoking Ordered: Body Mass Index (BMI) documented 3008F Current tobacco non-user 1036F Depression Screening Negative 3352F Influenza immunization status assessed 1030F Most recent diastolic blood (more content not included)... [facility] Comment on above: Result Comment: Elec tronically Signed By: Lucio PURVIS, Neftali Pham\Date and Time Signed: 08/16/23 16:48 EST Ambulatory Visit Summaryon 1 1-02-2023 Ambulatory Visit Summary STEPHON KHAN :2005 Visit Date:08/09/2023 Ambulatory Visit Instructions Your Diagnosis Trigger finger Hand pain Non-smoker BMI 23.0-23.9, adult Your Care Team Attending Physician - Julieth Alvarez Primary Care Physician - Neftali Clayton MD This Is Your Medications List escitalopram (escitalopram 20 mg Tab) ethinyl estradiol-norethindro ne (Nortrel oral tablet) hydrOXYzine (hydrOXYzine hydrochloride 10 mg Tab) meloxicam (meloxicam 15 mg Tab) triamcinolone topical (triamcinolone Top 0.1% Crm 15 gram) Procedures Performed Appendectomy (10/08/2013). Discharge Vitals Heart Rate (Peripheral) 78 Respiratory Rate 16 Blood Pressure 116/68 Height 162 cm Height 64 in Weight 62.7 kg Weight 137.94 lb BMI 23.89 What to do next Scheduled Follow-Up Appointments 2022 8:40 AM EST With: Lucio PURVIS, Neftali Dangelo Where: [address] \.br\ Medications\.br\ What How Much When Why Instructions\.br \ New meloxicam (meloxicam 15 mg Tab) 1 Tablets By Mouth Every day Trigger finger Hand pain Non-smoker BMI 23.0-23.9, adult Pickup at [facility]\.br\ Unchanged escitalopram (escitalopram 20 mg Tab) 1 Tablets By Mouth Every day BMI 20.0-20.9, adult Non-smoker\.br\ Unchanged ethinyl estradiol-noreth indrone (Nortrel 04/13/ oral tablet) 1 Tablets By Mouth Every day\.br\ Unchanged hydrOXYzine (hydrOXYzine hydrochloride 10 mg Tab) 1 Tablets By Mouth 4 times a day as needed for for anxiety\.br\ Unchanged triamcinolone topical (triamcinolone Top 0.1% Crm 15 gram) 1 Application Topical 3 times a day BMI 20.0-20.9, adult Non-smoker\.br\ Pharmacy Information\.br\ [facility]: [address] [place], [place] [id number] [phone]\.br\ Allergies\.br\ penicillin (Rash)\.br\ predniSONE (Hives)\.br\ Problems\.br\ Ongoing - Any problem that you are currently receiving treatment for.\.br\ Anxiety and depression\.br\ BMI less than 19,adult\.br\ Contact dermatitis\.br\ Dysmenorrhea\.br \ Hand pain\.br\ Non-smoker\.br\ Panic attacks\.br\ Picking own skin\.br\ Primary insomnia\.br\ Seasonal allergies\.br\ Trigger finger\.br\ Yeast vaginitis\.br\ Patient Survey\.br\ You may receive a survey via text or e-mail asking about your office visit. Please share your experience with us by completing your survey. We appreciate your feedback and thank you for choosing us for your care.\.br\ \.br\ [facility] Family Medicine Office/Clini c Noteon 08-09-2023 Family Medicine Office/Clinic Note HPI Staff Stephon is a 18 year old female presenting for acute visit Pain characteristics: Pain location: right hand to index finger Intensity:1/10 Onset: 2-3 months Medication used: Aleve Say Dr Clayton and was told she has trigger finger. When over using hand and using it to count medication will have pain shoot to index finger and thumb and sometimes into pinkie. History of Present Illness pt presents today with continue complaint of right index finger/hand pain Review of Systems PHQ Score Initial Depression Screen Score: 0 ROS - Provider Constitutional: no fever, no chills, no sweats, no fatigue Respiratory: no shortness of breath, no cough, no orthopnea, no wheezing. Cardiovascular: no chest pain, no palpitations, no edema. Neurologic: no headache, no dizziness, no numbness, no weakness. right finger/hand pain Physical Exam Vitals & Measurements HR: 78(Peripheral) RR: 16 BP: 116/68 SpO2: 98% HT: 64 in HT: 162 cm WT: 62.7 kg WT: 137.94 lb BMI: 23.89 General: alert, no acute distress ENMT: oral mucosa moist, no pharyngeal erythema or exudate Cardiovascular: regular rate and rhythm, normal peripheral perfusion Respiratory: Lungs CTA, respirations non labored Extremities: no deformity, no trauma Neurological: oriented x 4, LOC appropriate for age, CN II-XII intact, motor strength equal & normal bilaterally, speech normal Assessment/Plan 1. Trigger finger (M65.30: Trigger finger, unspecified finger) pt presents with worsening right index finger/hand pain. was told my Dr. Clayton she had trigger finger. they tried medrol dose pack. but it did not help with the pain. will order meloxicam. pt to return with DR. Clayton for lidocaine/kenalog injection. all questions answered. Ordered: meloxicam, 15 mg = 1 tab(s), Oral, Daily, # 30 tab(s), Refills(s) 0, Pharmacy: [facility], 162, cm, 08/09/23 10:13:00 EDT, Height/Length Dosing, 62.7, kg, 08/09/23 10:13:00 EDT, Weight Dosing 2. Hand pain (M79.643: Pain in unspecified hand) see above Ordered: meloxicam, 15 mg = 1 tab(s), Oral, Daily, # 30 tab(s), Refills(s) 0, Pharmacy: [facility], 162, cm, 08/09/23 10:13:00 EDT, Height/Length Dosing, 62.7, kg, 08/09/23 10:13:00 EDT, Weight Dosing 3. Non-smoker (Z78.9: Other specified health status) continue not smoking Ordered: meloxicam, 15 mg = 1 tab(s), Oral, Daily, # 30 tab(s), Refills(s) 0, Pharmacy: [facility], 162, cm, 08/09/23 10:13:00 EDT, Height/Length Dosing, 62.7, kg, 08/09/23 10:13:00 EDT, Weight Dosing 4. BMI 23.0-23.9, adult (Z68.23: Body mass index [BMI] 23.0-23.9, adult) BMI education complete Ordered: meloxicam, 15 mg = 1 tab(s), Oral, Daily, # 30 tab(s), Refills(s) 0, Pharmacy: [facility], 162, cm, 08/09/23 10:13:00 EDT, Height/Length Dosing, 62.7, kg, 08/09/23 10:13:00 EDT, Weight Dosing Follow-up No qualifying data available Problem List/Past Medical History Ongoing Anxiety and depression BMI less than 19,adult Contact dermatitis Dysmenorrhea Hand pain Non-smoker Panic attacks Picking own skin Primary insomnia Seasonal allergies Trigger finger Yeast vaginitis Historical No qualifying data Procedure/Surgical History Appendectomy (10/08/2013). Medications escitalopram 20 mg Tab, 20 mg= 1 tab(s), Oral, Daily hydrOXYzine hydrochloride 10 mg Tab, 10 mg= 1 tab(s), Oral, QID, PRN, 1 refills meloxicam 15 mg Tab, 15 mg= 1 tab(s), Oral, Daily Nortrel oral tablet, 35 mcg= 1 tab(s), Oral, Daily, 1 refills triamcinolone Top 0.1% Crm 15 gram, 1 marylou, Topical, TID Allergies penicillin (Rash) predniSONE (Hives) Social History Alcohol - Denies Alcohol Use, 01/18/2023 Substance Abuse - Denies Substance Abuse, 01/18/2023 Tobacco Never (less than 100 in lifetime) Tobacco Use:. Never Smokeless Tobacco Use:. Household tobacco concerns: No., 08/09/2023 Family History Family history is negative Immunizations Vaccine Date Status Comments influenza virus vaccine, inactivated - Not Given Patient Refuses SARS-CoV-2 mRNA (toclaranameran 5y-11y) vac - Not Given Postpone due to refusal [facility] Comment on above: Result Comment: Elec tronically Signed By: Julieth Alvarez\.br\Date and Time Signed: 08/09/23 10:36 EDT Consultation Noteon 07-24-20 Consultation Note [id number] .00TIFF [facility] SARS-CoV-2 (COVID-19) RNA NA A+probe Ql (Resp)on 07-16-2023 SARS-CoV-2 (COVID-19) RNA YONI+probe Ql (Unsp spec) Negative [employer] Other Consultation Noteon 07-02-20 Consultation Note [id number]. 00CD:127 Normal [facility] Ambulatory Visit Summaryon 0 06-26-2023 Ambulatory Visit Summary STEPHON KHAN :2005 Visit Date:06/26/2023 Ambulatory Visit Instructions Your Diagnosis Picking own skin BMI 23.0-23.9, adult Your Care Team Attending Physician - Neftali Clayton MD Primary Care Physician - Neftali Clayton MD This Is Your Medications List escitalopram (escitalopram 20 mg Tab) ethinyl estradiol-norethindro ne (Nortrel oral tablet) hydrOXYzine (hydrOXYzine hydrochloride 10 mg Tab) triamcinolone topical (triamcinolone Top 0.1% Crm 15 gram) Procedures Performed Appendectomy (10/08/2013). Discharge Vitals Temperature (Oral) 37.0 ?C Heart Rate (Peripheral) 76 Respiratory Rate 20 Blood Pressure 118/62 Height 162 cm Height 64 in Weight 61.5 kg Weight 135.3 lb BMI 23.43 What to do next Scheduled Follow-Up Appointments Sunday 8:20 AM EDT With: Julieth Alvarez Where: [facility] [address] [id number]- \.br\ Medications\.br\ What How Much When Why Instructions\.br \ Unchanged escitalopram (escitalopram 20 mg Tab) 1 Tablets By Mouth Every day BMI 20.0-20.9, adult Non-smoker\.br\ Unchanged ethinyl estradiol-noreth indrone (Nortrel oral tablet) 1 Tablets By Mouth Every day\.br\ Unchanged hydrOXYzine (hydrOXYzine hydrochloride 10 mg Tab) 1 Tablets By Mouth 4 times a day as needed for for anxiety\.br\ Unchanged triamcinolone topical (triamcinolone Top 0.1% Crm 15 gram) 1 Application Topical 3 times a day BMI 20.0-20.9, adult Non-smoker\.br\ Allergies\.br\ penicillin (Rash)\.br\ Problems\.br\ Ongoing - Any problem that you are currently receiving treatment for.\.br\ BMI less than 19,adult\.br\ Dysmenorrhea\.br \ Non-smoker\.br\ Panic attacks\.br\ Picking own skin\.br\ Primary insomnia\.br\ Seasonal allergies\.br\ Trigger finger\.br\ Yeast vaginitis\.br\ \.br\ [facility] Medicine Office/Clini c Noteon 06-26-2023 Family Medicine Office/Clinic Note HPI Staff Stephon is a 17 year old female presenting with 2 spots on legs that are open sores Picks at self. When her body itches her nails just go and they ended up digging and scratching things open. Anxiety been under control so doesn't feel it's the anxiety making her pick AARON: 4 One on back right leg that's larger and scabbed up and a fresher smaller area above it on the same leg flu: refused History of Present Illness See staff HPI Review of Systems PHQ Score Initial Depression Screen Score: 1 Physical Exam Vitals & Measurements T: 37.0 ?C(Oral) HR: 76(Peripheral) RR: 20 BP: 118/62 SpO2: 100% HT: 64 in HT: 162 cm WT: 61.5 kg WT: 135.3 lb BMI: 23.43 Raised macular papular rash noted on the back of the patient's R leg. Two separate areas. One with scabbing. Assessment/Plan 1. Picking own skin (F42.4: Excoriation (skin-picking) disorder) Most likely 2/2 Contact derm - Will do medrol dose jose - Follow up in 3 days if no improvement - Benadryl for itching Ordered: methylPREDNISolone, = 1 packet(s), Oral, As Directed, as directed on package labeling, X 6 day(s), # 21 tab(s), Refills(s) 0, Pharmacy: [facility], 162, cm, 06/26/23 14:10:00 EDT, Height/Length Dosing, 61.5, kg, 06/26/23 14:10:00 EDT, Weight Dosing Body Mass Index (BMI) documented 3008F Current tobacco non-user 1036F Depression Screening Negative 3352F Influenza immunization status assessed 1030F Most recent diastolic blood pressure <80 mm Hg 3078F Systolic BP <130 mm Hg (Most Recent) 3074F 2. Contact dermatitis (L25.9: Unspecified contact dermatitis, unspecified cause) - As above Ordered: methylPREDNISolone, = 1 packet(s), Oral, As Directed, as directed on package labeling, X 6 day(s), # 21 tab(s), Refills(s) 0, Pharmacy: [facility], 162, cm, 06/26/23 14:10:00 EDT, Height/Length Dosing, 61.5, kg, 06/26/23 14:10:00 EDT, Weight Dosing 3. Anxiety and depression (F41.9: Anxiety disorder, unspecified) - Pt states the picking is not from anxiety as she feels good. - Rash is noted - Advised patient to monitor anxiety on steroids Ordered: methylPREDNISolone, = 1 packet(s), Oral, As Directed, as directed on package labeling, X 6 day(s), # 21 tab(s), Refills(s) 0, Pharmacy: [facility], 162, cm, 06/26/23 14:10:00 EDT, Height/Length Dosing, 61.5, kg, 06/26/23 14:10:00 EDT, Weight Dosing 4. BMI 23.0-23.9, adult (Z68.23: Body mass index [BMI] 23.0-23.9, adult) - BMI education given. Ordered: methylPREDNISolone, = 1 packet(s), Oral, As Directed, as directed on package labeling, X 6 day(s), # 21 tab(s), Refills(s) 0, Pharmacy: [facility], 162, cm, 06/26/23 14:10:00 EDT, Height/Length Dosing, 61.5, kg, 06/26/23 14:10:00 EDT, Weight Dosing Body Mass Index (BMI) documented 3008F Current tobacco non-user 1036F Depression Screening Negative 3352F Influenza immunization status assessed 1030F Most recent diastolic blood pressure <80 mm Hg 3078F Systolic BP <130 mm Hg (Most Recent) 3074F Orders: fluconazole, 150 mg = 1 tab(s), Oral, Once, # 1 tab(s), Refills(s) 0, Pharmacy: [facility], 162, cm, 05/10/23 9:16:00 EDT, Height/Length Dosing, 58, kg, 05/10/23 9:16:00 EDT, Weight Dosing Follow-up No qualifying data available Patient Education BMI for Adults Problem List/Past Medical History Ongoing Anxiety and depression BMI less than 19,adult Contact dermatitis Dysmenorrhea Non-smoker Panic attacks Picking own skin Primary insomnia Seasonal allergies Trigger finger Yeast vaginitis Historical No qualifying data Procedure/Surgical History Appendectomy (10/08/2013). Medications escitalopram 20 mg Tab, 20 mg= 1 tab(s), Oral, Daily hydrOXYzine hydrochloride 10 mg Tab, 10 mg= 1 tab(s), Oral, QID, PRN, 1 refills Medrol Dosepack 4 mg Tab, 1 packet(s), Oral, As Directed Nortrel oral tablet, 35 mcg= 1 tab(s), Oral, Daily, 1 refills triamcinolone Top 0.1% Crm 15 gram, 1 marylou, Topical, TID Allergies penicillin (Rash) Social History Alcohol - Denies Alcohol Use, 01/18/2023 Substance Abuse - Denies Substance Abuse, 01/18/2023 Tobacco Never (less than 100 in lifetime) Tobacco Use:. Never Smokeless Tobacco Use:. Household tobacco concerns: No., 06/26/2023 Family History Family history is negative Immunizations Vaccine Date Status Comments SARS-CoV-2 mRNA (tozinameran 5y-11y) vac - Not Given Postpone due to refusal [facility] Comment on above: Result Comment: Elec tronically Signed By: Lucio PURVIS, Neftali Brush.br\Date and Time Signed: 06/26/23 14:30 EDT Patient Educationon 06-26-20 Patient Education Nutrition BMI for Adults What is BMI? Body mass index (BMI) is a number that is calculated from a person's weight and height. BMI can help estimate how much of a person's weight is composed of fat. BMI does not measure body fat directly. Rather, it is an alternative to procedures that directly measure body fat, which can be difficult and expensive. BMI can help identify people who may be at higher risk for certain medical problems. What are BMI measurements used for? BMI is used as a screening tool to identify possible weight problems. It helps determine whether a person is obese, overweight, a healthy weight, or underweight. BMI is useful for: ? Identifying a weight problem that may be related to a medical condition or may increase the risk for medical problems. ? Promoting changes, such as changes in diet and exercise, to help reach a healthy weight. BMI screening can be repeated to see if these changes are working. How is BMI calculated? BMI involves measuring your weight in relation to your height. Both height and weight are measured, and the BMI is calculated from those numbers. This can be done either in [place] or metric measurements. Note that charts and online BMI calculators are available to help you find your BMI quickly and easily without having to do these calculations yourself. To calculate your BMI in [place] measurements: 1. Measure your weight in pounds (lb). 2. Multiply the number of pounds by 703. ? For example, for a person who weighs 180 lb, multiply that number by 703, which equals 126,540. 3. Measure your height in inches. Then multiply that number by itself to get a measurement called inches squared. ? For example, for a person who is 70 inches tall, the inches squared measurement is 70 inches x 70 inches, which equals 4,900 inches squared. 4. Divide the total from step 2 (number of lb x 703) by the total from step 3 (inches squared): 126,540 ? 4,900 = 25.8. This is your BMI. To calculate your BMI in metric measurements: 1. Measure your weight in kilograms (kg). 2. Measure your height in meters (m). Then multiply that number by itself to get a measurement called meters squared. ? For example, for a person who is 1.75 m tall, the meters squared measurement is 1.75 m x 1.75 m, which is equal to 3.1 meters squared. 3. Divide the number of kilograms (your weight) by the meters squared number. In this example: 70 ? 3.1 = 22.6. This is your BMI. What do the results mean? BMI charts are used to identify whether you are underweight, normal weight, overweight, or obese. The following guidelines will be used: ? Underweight: BMI less than 18.5. ? Normal weight: BMI between 18.5 and 24.9. ? Overweight: BMI between 25 and 29.9. ? Obese: BMI of 30 or above. Keep these notes in mind: ? Weight includes both fat and muscle, so someone with a muscular build, such as an athlete, may have a BMI that is higher than 24.9. In cases like these, BMI is not an accurate measure of body fat. ? To determine if excess body fat is the cause of a BMI of 25 or higher, further assessments may need to be done by a health care provider. ? BMI is usually interpreted in the same way for men and women. Where to find more information For more information about BMI, including tools to quickly calculate your BMI, go to these websites: ? Centers for Disease Control and Prevention: www.cdc.gov ? [place] Heart Association: www.heart.org ? National Heart, Lung, and Blood [place]: www.nhlbi.nih.gov Summary ? Body mass index (BMI) is a number that is calculated from a person's weight and height. ? BMI may help estimate how much of a person's weight is composed of fat. BMI can help identify those who may be at higher risk for certain medical problems. ? BMI can be measured using [place] measurements or metric measurements. ? BMI charts are used to identify whether you are underweight, normal weight, overweight, or obese. This information is not intended to replace advice given to you by your health care provider. Make sure you discuss any questions you have with your health care provider. Document Revised: 06/16/2020 Document Reviewed: 04/23/2020 [employer] Patient Education ? 2022 [employer]. [facility] Family Medicine Office/Clini c Noteon 05-14-2023 Family Medicine Office/Clinic Note Chief Complaint follow up mood HPI Staff Patient presents for follow up depression/anxiety Follow up for Mental Status: Medication adherence- Yes, takes medication as prescribed MEdication refill needed: yes, just the escitalopram Suicidal thoughts-Not at this time Most recent AARON: 9 Most recent PHQ9: 4 questions/concerns: sharp pain in right hand going down into her wrist when at work Her allergies making her eyes irritated, they itch and feels like something is in them After her antb for cellulitis ( cephalexin) has some irritation and itching in vaginal area, used a tampon yesterday and it made it irritable and worse with intercourse History of Present Illness Stephon Khan is an 17-year-old female who presents today for a follow-up evaluation. Her anxiety has shown signs of improvement. She is taking Lexapro and hydroxyzine. She does not take her hydroxyzine as often. She will take 2 or 3 throughout the day when she feels like she is having a panic attack. She is experiencing right wrist pain and her mother believes it could be carpal tunnel syndrome. She describes it as a pinching pain that radiates down into her wrist. It does not radiate into her fingers. 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 She is currently experiencing itchiness due to cellulitis and is taking antibiotics. Review of Systems PHQ Score Initial Depression Screen Score: 1 Physical Exam Vitals & Measurements T: 37.6 ?C(Temporal Artery) HR: 88(Peripheral) RR: 14 BP: 102/60 SpO2: 98% HT: 64 in HT: 162 cm WT: 58.0 kg WT: 127.6 lb BMI: 22.1 General: alert, no acute distress Cardiovascular: regular rate and rhythm, normal peripheral perfusion Respiratory: Lungs CTA, respirations non labored Extremities: no deformity, no trauma. Triggering felt in the 1st finger. Neurological: oriented x 4, LOC appropriate for age, CN II-XII intact, motor strength equal & normal bilaterally, speech normal Assessment/Plan 1. Trigger finger (M65.30: Trigger finger, unspecified finger) We will do a Medrol Dosepak at this time to see if this helps. It is very minimal triggering and it is intermittent. If this does not help, we will have to move towards injection. Patient is agreeable to this and understands. 2. Panic attacks (F41.0: Panic disorder [episodic paroxysmal anxiety]) Patient is well controlled using the hydroxyzine and the Lexapro. Discussed how the steroids may cause a little bit more anxiety. Patient has been made aware of this. 3. Seasonal allergies (J30.2: Other seasonal allergic rhinitis) This should be helped with since the OTC medication is not working, this should be helped with the steroid. Patient has been made aware of again the using the Medrol Dosepak and the anxiety. We discussed this in detail. 4. Yeast vaginitis (B37.31: Acute candidiasis of vulva and vagina) We will do a Diflucan. Encouraged the patient if the itching and irritation does not improve, patient will come back and be seen. 5. BMI 20.0-20.9, adult (Z68.20: Body mass index [BMI] 20.0-20.9, adult) BMI education given. 6. Non-smoker (Z78.9: Other specified health status) Portions of this record may have been created with voice recognition artificial intelligence software, specifically [employer], [employer] and or [employer]. Substitutions may have occurred due to the inherent limitations of voice recognition and artificial intelligence software. ATTESTATION: Documentation services were performed after patient or guardian consented to allow [employer] to record this visit. IRINEO engineering technical specialist and provider reviewed before signing. IRINEO: Kalyani Hdz. Follow-up No qualifying data available Problem List/Past Medical History Ongoing BMI less than 19,adult Dysmenorrhea Non-smoker Panic attacks Picking own skin Primary insomnia Seasonal allergies Trigger finger Yeast vaginitis Historical No qualifying data Procedure/Surgical History Appendectomy (10/08/2013). Medications Diflucan 150 mg Tab, 150 mg= 1 tab(s), Oral, Once escitalopram 20 mg Tab, 20 mg= 1 tab(s), Oral, Daily hydrOXYzine hydrochloride 10 mg Tab, 10 mg= 1 tab(s), Oral, QID, PRN, 1 refills Medrol Dosepack 4 mg Tab, 1 packet(s), Oral, As Directed Nortrel oral tablet, 35 mcg= 1 tab(s), Oral, Daily, 1 refills triamcinolone Top 0.1% Crm 15 gram, 1 marylou, Topical, TID Allergies penicillin (Rash) Social History Alcohol - Denies Alcohol Use, 01/18/2023 Substance Abuse - Denies Substance Abuse, 01/18/2023 Tobacco Never (less than 100 in lifetime) Tobacco Use:. Never Smokeless Tobacco Use:. Household tobacco concerns: No., 05/10/2023 Family History Family history is negative Immunizations Vaccine Date Status Comments SARS-CoV-2 mRNA (letin 5y-11y) vac - Not Given Postpone due to refusal Diagnostic Results No results were obtained or interpreted today. Normal [facility] Comment on above: Result Comment: Elec tronically Signed By: Neftali Clayton MD\.br\Date and Time Signed: 05/14/23 12:57 EDT\.br\Electronically Co-Signed By: Kalyani Hdz\.br\Date and Time Co-Signed: 05/10/23 10:52 EDT Ambulatory Visit Summaryon 0 05-10-2023 Ambulatory Visit Summary STEPHON KHAN :2005 Visit Date:05/10/2023 Ambulatory Visit Instructions Your Diagnosis Trigger finger Panic attacks Seasonal allergies Yeast vaginitis BMI 21.0-21.9, adult Your Care Team Attending Physician - Neftali Clayton MD Primary Care Physician - Neftali Clayton MD This Is Your Medications List escitalopram (escitalopram 20 mg Tab) ethinyl estradiol-norethindro ne (Nortrel oral tablet) hydrOXYzine (hydrOXYzine hydrochloride 10 mg Tab) triamcinolone topical (triamcinolone Top 0.1% Crm 15 gram) Procedures Performed Appendectomy (10/08/2013). Discharge Vitals Temperature (Temporal Artery) 37.6 ?C Heart Rate (Peripheral) 88 Respiratory Rate 14 Blood Pressure 102/60 Height 162 cm Height 64 in Weight 58.0 kg Weight 127.6 lb BMI 22.1 What to do next Scheduled Follow-Up Appointments Sunday 3:00 PM EDT With: Neftali Clayton MD Where: [facility] [place] Normal [facility] Consultation Noteon 04-20-20 Consultation Note [id number] Normal [facility] Ambulatory Visit Summaryon 0 04-19-2023 Ambulatory Visit Summary STEPHON KHAN :2005 Visit Date:04/19/2023 Ambulatory Visit Instructions Your Diagnosis BMI 20.0-20.9, adult Non-smoker Your Care Team Attending Physician - Julieth Alvarez Primary Care Physician - Lucio PURVIS, Neftali Dangelo This Is Your Medications List escitalopram (escitalopram 20 mg Tab) ethinyl estradiol-norethindro ne (Nortrel oral tablet) hydrOXYzine (hydrOXYzine hydrochloride 10 mg Tab) triamcinolone topical (triamcinolone Top 0.1% Crm 15 gram) Procedures Performed Appendectomy (10/08/2013). Discharge Vitals Temperature (Oral) 36.7 ?C Heart Rate (Peripheral) 78 Respiratory Rate 18 Blood Pressure 100/76 Height 162 cm Height 64 in Weight 56.1 kg Weight 123.42 lb BMI 21.38 What to do next Scheduled Follow-Up Appointments 2022 9:20 AM EDT With: Neftali Clayton MD Where: [facility] Family Medicine Office/Clini c Noteon 04-19-2023 Family Medicine Office/Clinic Note HPI Staff Stephon is a 17 year old female presenting for acute visit onset: 04/15/23 New or Recurrent: pt states when her anxiety gets back she will scratch at her legs. this is the first time she has had swelling and redness to her legs from scratching Location: back of legs Description: red Rash symptoms: burning 04/18/23 was seen at Urgent care and was given Cephalexin for 10 days pt states she was told looked like skin abrasion with cellulitis. pt has applied cool compress, and Neosporin. PHQ: 11 AARON: 14 History of Present Illness pt presents today for follow up on cellulitis of legs. worsening anxiety Review of Systems PHQ Score Initial Depression Screen Score: 1 ROS - Provider Constitutional: no fever, no chills, no sweats, no fatigue Respiratory: no shortness of breath, no cough, no orthopnea, no wheezing. Cardiovascular: no chest pain, no palpitations, no edema. Neurologic: no headache, no dizziness, no numbness, no weakness. Physical Exam Vitals & Measurements T: 36.7 ?C(Oral) HR: 78(Peripheral) RR: 18 BP: 100/76 SpO2: 99% HT: 64 in HT: 162 cm WT: 56.1 kg WT: 123.42 lb BMI: 21.38 General: alert, no acute distress ENMT: oral mucosa moist, no pharyngeal erythema or exudate Cardiovascular: regular rate and rhythm, normal peripheral perfusion Respiratory: Lungs CTA, respirations non labored Extremities: no deformity, no trauma Neurological: oriented x 4, LOC appropriate for age, CN II-XII intact, motor strength equal & normal bilaterally, speech normal skin: healing areas on back of lower legs Assessment/Plan 1. Picking own skin (F42.4: Excoriation (skin-picking) disorder) pt presents today for follow up on cellulitis on KE lower legs. pt struggles with anxiety and will pick at her skin until it is raw. this last episode of picking caused an infection. she is currently taking antibiotics for the infection and the areas are healing. pt is very concerned and states I don't know why I do this to myself I will get an itchy feeling then I just keep picking until it hurts. she is currently in counseling. will increase escitalopram to 20mg. pt is scheduled with Dr. Clayton in 3 weeks. she will keep that appointment. all questions answered. triamcinolone cream sent to pharmacy. pt encouraged to use cream when she starts to feel the itching . 2. Panic attacks (F41.0: Panic disorder [episodic paroxysmal anxiety]) see above 3. Primary insomnia (F51.01: Primary insomnia) pt states insomnia is somewhat better. 4. BMI 20.0-20.9, adult (Z68.20: Body mass index [BMI] 20.0-20.9, adult) BMI education complete Ordered: escitalopram, 20 mg = 1 tab(s), Oral, Daily, # 30 tab(s), Refills(s) 0, Pharmacy: [facility], 162, cm, 04/19/23 10:05:00 EDT, Height/Length Dosing, 56.1, kg, 04/19/23 10:05:00 EDT, Weight Dosing triamcinolone topical, 1 marylou, Topical, TID, 60 gram, Refill(s) 0, [facility], 162, cm, 04/19/23 10:05:00 EDT, Height/Length Dosing, 56.1, kg, 04/19/23 10:05:00 EDT, Weight Dosing 5. Non-smoker (Z78.9: Other specified health status) continue not smoking Ordered: escitalopram, 20 mg = 1 tab(s), Oral, Daily, # 30 tab(s), Refills(s) 0, Pharmacy: [facility], 162, cm, 04/19/23 10:05:00 EDT, Height/Length Dosing, 56.1, kg, 04/19/23 10:05:00 EDT, Weight Dosing triamcinolone topical, 1 marylou, Topical, TID, 60 gram, Refill(s) 0, [facility], 162, cm, 04/19/23 10:05:00 EDT, Height/Length Dosing, 56.1, kg, 04/19/23 10:05:00 EDT, Weight Dosing Follow-up No qualifying data available Problem List/Past Medical History Ongoing BMI 20.0-20.9, adult BMI less than 19,adult Dysmenorrhea Non-smoker Panic attacks Picking own skin Primary insomnia Historical No qualifying data Procedure/Surgical History Appendectomy (10/08/2013). Medications escitalopram 20 mg Tab, 20 mg= 1 tab(s), Oral, Daily hydrOXYzine hydrochloride 10 mg Tab, 10 mg= 1 tab(s), Oral, QID, PRN Nortrel oral tablet, 35 mcg= 1 tab(s), Oral, Daily, 1 refills triamcinolone Top 0.1% Crm 15 gram, 1 marylou, Topical, TID Allergies penicillin (Rash) Social History Alcohol - Denies Alcohol Use, 01/18/2023 Substance Abuse - Denies Substance Abuse, 01/18/2023 Tobacco Never (less than 100 in lifetime) Tobacco Use:. Never Smokeless Tobacco Use:. Household tobacco concerns: No., 04/19/2023 Family History Family history is negative Immunizations Vaccine Date Status Comments SARS-CoV-2 mRNA (tozinameran 5y-11y) vac - Not Given Postpone due to refusal [facility] Comment on above: Result Comment: Elec tronically Signed By: Julieth Alvarez\.tamie\Date and Time Signed: 04/19/23 10:23 EDT Ambulatory Visit Summaryon 0 02-19-2023 Ambulatory Visit Summary STEPHON KHAN :2005 [id number] Visit Date:02/19/2023 Ambulatory Visit Instructions Your Diagnosis Panic attacks Primary insomnia Your Care Team Attending Physician - Neftali Clayton MD Primary Care Physician - Neftali Clayton MD This Is Your Medications List ethinyl estradiol-norethindro ne (Nortrel oral tablet) hydrOXYzine (hydrOXYzine hydrochloride 10 mg Tab) Procedures Performed Appendectomy (10/08/2013). Discharge Vitals Heart Rate (Peripheral) 79 Respiratory Rate 16 Blood Pressure 114/70 Height 162 cm Height 64 in Weight 52.85 kg Weight 116.27 lb BMI 20.14 What to do next Scheduled Follow-Up Appointments Sunday 7:00 AM EDT With: Neftali Clayton MD Where: [facility] Family Medicine Office/Clini c Noteon 02-19-2023 Family Medicine Office/Clinic Note Chief Complaint follow up anxiety HPI Staff Follow up medication for anxiety Follow up for Mental Status: Medication adherence- Yes, takes medication as prescribed MEdication refill needed: no_ Suicidal thoughts-Not at this time Most recent AARON: 14 Most recent PHQ: 14 questions/concerns: says some days meds seem to work for her and other days she gets the shakes real bad at work History of Present Illness - Pt has had improvement in her anxiety/Panic attack - Still had high anxiety. - Discussed High scores for both anxiety and depression - Pt falls asleep well, but wakes up several times a night - States Hydroxyzine works well, but she has to take it a lot. - Seeing a counselor starting tomorrow. Review of Systems PHQ Score Initial Depression Screen Score: 4 Physical Exam Vitals & Measurements HR: 79(Peripheral) RR: 16 BP: 114/70 SpO2: 97% HT: 64 in HT: 162 cm WT: 52.85 kg WT: 116.27 lb BMI: 20.14 General: alert, no acute distress ENMT: oral mucosa moist, Cardiovascular: regular rate and rhythm, normal peripheral perfusion Respiratory: Lungs CTA, respirations non labored Extremities: no deformity, no trauma Neurological: oriented x 4, LOC appropriate for age, Assessment/Plan 1. Anxiety and depression (F41.9: Anxiety disorder, unspecified) - Will start Lexapro. - Discussed pros and cons - Follow up in 4 weeks. 2. Depression, unspecified (F32.A: Depression, unspecified) - As above 3. Panic attacks (F41.0: Panic disorder [episodic paroxysmal anxiety]) - Continue on Hydroxyzine PRN Ordered: Body Mass Index (BMI) documented 3008F Current tobacco non-user 1036F Depression Screening Positive 3354F Most recent diastolic blood pressure <80 mm Hg 3078F Systolic BP <130 mm Hg (Most Recent) 3074F 4. Primary insomnia (F51.01: Primary insomnia) - Use of Hydroxyzine - Should improve once her anxiety improves. - Pt can use Hydroxyzine to help as well. Ordered: Body Mass Index (BMI) documented 3008F Current tobacco non-user 1036F Depression Screening Positive 3354F Most recent diastolic blood pressure <80 mm Hg 3078F Systolic BP <130 mm Hg (Most Recent) 3074F Orders: escitalopram, 10 mg = 1 tab(s), Oral, Daily, # 90 tab(s), Refills(s) 0, Pharmacy: [facility], 162, cm, 02/19/23 7:03:00 EDT, Height/Length Dosing, 52.9, kg, 02/19/23 7:03:00 EDT, Weight Dosing hydrOXYzine, 10 mg = 1 tab(s), Oral, QID, PRN for anxiety, # 90 tab(s), Refills(s) 0, Pharmacy: [facility], 162, cm, 02/19/23 7:03:00 EDT, Height/Length Dosing, 52.9, kg, 02/19/23 7:03:00 EDT, Weight Dosing Follow-up No qualifying data available Problem List/Past Medical History Ongoing BMI 20.0-20.9, adult BMI less than 19,adult Dysmenorrhea Non-smoker Panic attacks Primary insomnia Historical No qualifying data Procedure/Surgical History Appendectomy (10/08/2013). Medications hydrOXYzine hydrochloride 10 mg Tab, 10 mg= 1 tab(s), Oral, QID, PRN Lexapro 10 mg Tab, 10 mg= 1 tab(s), Oral, Daily Nortrel oral tablet, 35 mcg= 1 tab(s), Oral, Daily, 1 refills Allergies penicillin (Rash) Social History Alcohol - Denies Alcohol Use, 01/18/2023 Substance Abuse - Denies Substance Abuse, 01/18/2023 Tobacco Never (less than 100 in lifetime) Tobacco Use:. Never Smokeless Tobacco Use:. Household tobacco concerns: No., 02/19/2023 Family History Family history is negative Immunizations Vaccine Date Status Comments SARS-CoV-2 mRNA (tozinameran 5y-11y) vac - Not Given Postpone due to refusal [facility] Comment on above: Result Comment: Elec tronically Signed By: Neftali Clayton MD\.br\Date and Time Signed: 02/19/23 08:18 EDT Ambulatory Visit Summaryon 0 01-18-2023 Ambulatory Visit Summary STEPHON KHAN :2005 Visit Date:01/18/2023 Ambulatory Visit Instructions Your Diagnosis Dysmenorrhea Insomnia Panic attacks BMI less than 19,adult Non-smoker Your Care Team Attending Physician - Neftali Clayton MD Primary Care Physician - Neftali Clayton MD This Is Your Medications List ethinyl estradiol-norethindro ne (Nortrel oral tablet) hydrOXYzine (hydrOXYzine hydrochloride 10 mg Tab) [Image Removed: STOP]Stop taking these medications doxycycline (doxycycline hyclate 100 mg Cap) Procedures Performed Appendectomy (10/08/2013). Discharge Vitals Heart Rate (Peripheral) 89 Blood Pressure 118/74 Height 162 cm Height 64 in Weight 51.2 kg Weight 112.64 lb BMI 19.51 What to do next Scheduled Follow-Up Appointments February. 2022 8:20 AM EDT With: Julieth Alvarez Where: [facility] Medicine [place] Normal [facility] Family Medicine Office/Clini c Noteon 01-18-2023 Family Medicine Office/Clinic Note Chief Complaint establish care HPI Staff establish care, discuss control medication Establish Care: History: panic attacks, dysmenorrhea Last provider: Dr Padilla Any recent labs: cbc 10/04/22/ nl Follow up for Mental Status: Medication adherence- Not on anything at this time MEdication refill needed: _ Suicidal thoughts-Not at this time Most recent AARON:15 Most recent PHQ: Health Maintenance UTD: Pelvic/Pap: 10/04/2022 normal Acute: Current issues/complaints: Anxiety, insomnia, menses. History of Present Illness Stephon has been a long-term patient of Dr. Padilla. She has been on control for approximately 1 year. She states that when she first started control, her heavy periods improved. However, since 07/2022, her periods became heavy again for the first 2 days of her period. She experiences cramps. She has to change her tampon approximately 8 to 10 times a day for the first 2 days. The next 3 days of her period are extremely light. She notes that before starting the control all 5 days of her period were heavy. She does not want to try Depo-Provera. She is open to trying an IUD or Nexplanon. Her panic attacks have improved but she still has them intermittently. They have not been as severe as they were prior to starting counseling at [facility]. Her panic attacks are caused by thinking about worst case scenario situations. She works as a director of pharmacy at [employer] and sometimes panics about work. She went to urgent care and was given hydroxyzine 10 mg, but it made her drowsy. Stephon reports that she has been having difficulty sleeping for the past 2 weeks. She has tried melatonin and NyQuil, but they did not help. She denies racing thoughts. She states that she can fall asleep for a couple of hours and then she is in and out the rest of the night. Review of Systems PHQ Score Initial Depression Screen Score: 3 Physical Exam Vitals & Measurements HR: 89(Peripheral) BP: 118/74 SpO2: 99% HT: 64 in HT: 162 cm WT: 51.2 kg WT: 112.64 lb BMI: 19.51 General: alert, no acute distress ENMT: oral mucosa moist Cardiovascular: regular rate and rhythm, normal peripheral perfusion Respiratory: Lungs CTA, respirations non labored Extremities: no deformity, no trauma Neurological: oriented x 4, LOC appropriate for age, CN II-XII intact, motor strength equal & normal bilaterally, speech normal Assessment/Plan 1. Dysmenorrhea (N94.6: Dysmenorrhea, unspecified) We will look at using an IUD to help with this. We will refill the patient's OCP until we can get an IUD and see if the IUD will help. 2. Insomnia (G47.00: Insomnia, unspecified) We will use the hydroxyzine that she will have for the panic attacks to help with insomnia and see if this works. If not, we can look at use of trazodone or increasing the hydroxyzine. 3. Panic attacks (F41.0: Panic disorder [episodic paroxysmal anxiety]) We used hydroxyzine. Patient states it does make her too sleepy, but discussed how just having the medication may help break the panic attacks. Discussed how to use it in detail. Patient will see if this is an option for her. 4. BMI less than 19,adult (Z68.1: Body mass index [BMI] 19.9 or less, adult) BMI education given. 5. Non-smoker (Z78.9: Other specified health status) Please continue not to smoke. Documentation services were performed after patient or guardian consented to allow Joshua Elaine to record this visit. IRINEO engineering technical specialist and provider reviewed before signing. IRINEO: Anna Syed. Follow-up No qualifying data available Patient Education BMI for Adults Problem List/Past Medical History Ongoing BMI less than 19,adult Dysmenorrhea Insomnia Non-smoker Panic attacks Historical No qualifying data Procedure/Surgical History Appendectomy (10/08/2013). Medications hydrOXYzine hydrochloride 10 mg Tab, 10 mg= 1 tab(s), Oral, QID, PRN Nortrel oral tablet, 35 mcg= 1 tab(s), Oral, Daily, 1 refills Allergies penicillin (Rash) Social History Alcohol - Denies Alcohol Use, 01/18/2023 Substance Abuse - Denies Substance Abuse, 01/18/2023 Tobacco Never (less than 100 in lifetime) Tobacco Use:. Never Smokeless Tobacco Use:. Household tobacco concerns: No., 01/18/2023 Family History Family history is negative Normal [facility] Comment on above: Result Comment: Elec tronically Signed By: Neftali Clayton MD\.br\Date and Time Signed: 01/18/23 13:03 EDT\.br\Electronically Co-Signed By: Anna Syed.br\Date and Time Co-Signed: 01/18/23 11:35 EDT Patient Educationon 04-13-20 23 Patient Education Nutrition BMI for Adults Body mass index (BMI) is a number that is calculated from a person's weight and height. BMI may help to estimate how much of a person's weight is composed of fat. BMI can help identify those who may be at higher risk for certain medical problems. How is BMI used with adults? BMI is used as a screening tool to identify possible weight problems. It is used to check whether a person is obese, overweight, healthy weight, or underweight. How is BMI calculated? BMI measures your weight and compares it to your height. This can be done either in [place] ([place] or metric measurements. Note that charts are available to help you find your BMI quickly and easily without having to do these calculations yourself. To calculate your BMI in [place] measurements, your health care provider will: 1. Measure your weight in pounds (lb). 2. Multiply the number of pounds by 703. ? For example, for a person who weighs 180 lb, multiply that number by 703, which equals 126,540. 3. Measure your height in inches (in). Then multiply that number by itself to get a measurement called inches squared. ? For example, for a person who is 70 in tall, the inches squared measurement is 70 in x 70 in, which equals 4900 inches squared. 4. Divide the total from Step 2 (number of lb x 703) by the total from Step 3 (inches squared): 126,540 ? 4900 = 25.8. This is your BMI. To calculate your BMI in metric measurements, your health care provider will: 1. Measure your weight in kilograms (kg). 2. Measure your height in meters (m). Then multiply that number by itself to get a measurement called meters squared. ? For example, for a person who is 1.75 m tall, the meters squared measurement is 1.75 m x 1.75 m, which is equal to 3.1 meters squared. 3. Divide the number of kilograms (your weight) by the meters squared number. In this example: 70 ? 3.1 = 22.6. This is your BMI. How is BMI interpreted? To interpret your results, your health care provider will use BMI charts to identify whether you are underweight, normal weight, overweight, or obese. The following guidelines will be used: ? Underweight: BMI less than 18.5. ? Normal weight: BMI between 18.5 and 24.9. ? Overweight: BMI between 25 and 29.9. ? Obese: BMI of 30 and above. Please note: ? Weight includes both fat and muscle, so someone with a muscular build, such as an athlete, may have a BMI that is higher than 24.9. In cases like these, BMI is not an accurate measure of body fat. ? To determine if excess body fat is the cause of a BMI of 25 or higher, further assessments may need to be done by a health care provider. ? BMI is usually interpreted in the same way for men and women. Why is BMI a useful tool? BMI is useful in two ways: ? Identifying a weight problem that may be related to a medical condition, or that may increase the risk for medical problems. ? Promoting lifestyle and diet changes in order to reach a healthy weight. Summary ? Body mass index (BMI) is a number that is calculated from a person's weight and height. ? BMI may help to estimate how much of a person's weight is composed of fat. BMI can help identify those who may be at higher risk for certain medical problems. ? BMI can be measured using Mauritian measurements or metric measurements. ? To interpret your results, your health care provider will use BMI charts to identify whether you are underweight, normal weight, overweight, or obese. This information is not intended to replace advice given to you by your health care provider. Make sure you discuss any questions you have with your health care provider. Document Released: 06/05/2005 Document Revised: 09/06/2018 Document Reviewed: 08/07/2018 [employer] Patient Education ? 2020 [employer] Normal [facility] FREE T3on 12-04-2022 FREE T3 3.07 pg/mlL Normal 2.91-4.70 The Comment on above: Performed By: #### T SH, FT3 #### Laboratory [address] [place], [place] [address] Dr. Elvin Levine FREE T4on 12-04-2022 Free T4 [Mass/Vol] 1.16 ng/dL Normal 0.78-1.34 [facility] Comment on above: Performed By: #### F T4 #### Laboratory [address] [place] [address] Dr. Elvin Levine TSHon 12-04-2022 TSH 2.373 uIU/mL Normal 0.516-4.130 [facility] Comment on above: Performed By: #### T SH, FT3 #### Laboratory [address] [place] [address] Dr. Elvin Levine PAP ACOG PANEL 2: 21 to 29on 10-11-2022 . . Normal [facility] Comment on above: Performed By: #### [id number] #### Laboratory [address] [place] [address] Dr. Elvin Levine Age Gdln ACOG Testing Comment [facility] Comment on above: Result Comment: <21 or >65 or no age provided Performed By: #### [id number] #### Laboratory [address] [place] [address] Dr. Elvin Levine DIAGNOSIS: Comment Normal [facility] Comment on above: Result Comment: NEGA TIVE FOR INTRAEPITHELIAL LESION OR MALIGNANCY. Performed By: #### [id number] #### Laboratory [address] [place] [address] Dr. Elvin Levine Methodology: Comment [facility] Comment on above: Result Comment: This liquid based ThinPrep(R) pap test was screened with the use of an image guided system. Performed By: #### [id number] #### Laboratory [address] [place] [address] Dr. Elvin Levine Note: Comment [facility] Comment on above: Result Comment: The Pap smear is a screening test designed to aid in the detection of premalignant and malignant conditions of the uterine cervix. It is not a diagnostic procedure and should not be used as the sole means of detecting cervical cancer. Both false-positive and false-negative reports do occur. . Performed By: #### [id number] #### Laboratory [address] [place] [address] Dr. Elvin Levine Performed by: Comment Normal [facility] Comment on above: Result Comment: [employer] [place] Performed By: #### [id number] #### Laboratory [address] [place] [address] Dr. Elvin Levine Specimen adequacy: Comment Normal [facility] Comment on above: Result Comment: Sati sfactory for evaluation. Endocervical and/or squamous metaplastic cells (endocervical component) are present. Performed By: #### [id number] #### Laboratory [address] [place] [address] Dr. Elvin Levine CBC W MANUAL DIFFon 10-06-20 22 ATYPICAL LYMPH # Normal [facility] Comment on above: Performed By: #### C LEONIE #### Laboratory [address] [place] [address] Dr. Elvin Levine ATYPICAL LYMPH % Normal [facility] Comment on above: Performed By: #### C LEONIE #### Laboratory [address] [place] [address] Dr. Elvin Levine BAND # Normal 0.0-0.3 [facility] Comment on above: Performed By: #### C LEONIE #### Laboratory [address] [place] [address] Dr. Elvin Levine BAND % Normal 0-5 [facility] Comment on above: Performed By: #### C LEONIE #### Laboratory [address] [place] [address] Dr. Elvin Levine BASOM # 0.00 103/ul Normal 0.00-0.10 The Comment on above: Performed By: #### C LEONIE #### Laboratory [address] [place] [address] Dr. Elvin Levine BASOM % 0.0 % Critically low 0.2-2.0 [facility] Comment on above: Performed By: #### C LEOINE #### Laboratory [address] [place] [address] Dr. Elvin Levine BLAST # Normal [facility] Comment on above: Performed By: #### C LEONIE #### Laboratory [address] [place] [address] Dr. Elvin Levine BLAST % Normal The Comment on above: Performed By: #### C LEONIE #### Laboratory [address] [place] [address] Dr. Elvin Levine CORRECTED WBC Normal 4.0-11.0 [facility] Comment on above: Performed By: #### C LEONIE #### Laboratory [address] [place] [address] Dr. Elvin Levine EOS # 0.06 103/ul Normal 0.00-0.70 [facility] Comment on above: Performed By: #### C LEONIE #### Laboratory [address] [place] [address] Dr. Elvin Levine EOS% 2.0 % Normal 0.9-7.0 [facility] Comment on above: Performed By: #### C LEONIE #### Laboratory [address] [place] [address] Dr. Elvin Levine HCT 38.4 % Normal 36.0-48.0 [facility] Comment on above: Performed By: #### C LEONIE #### Laboratory [address] [place] [address] Dr. Elvin Levine HGB 13.0 g/dl Normal 12.0-16.0 [facility] Comment on above: Performed By: #### C LEONIE #### Laboratory [address] [place] [address] Dr. Elvin Levine LYMPHM # 1.55 103/ul Normal 1.20-3.80 [facility] Comment on above: Performed By: #### C LEONIE #### Laboratory [address] [place] [address] Dr. Elvin Levine LYMPHM% 50.0 % Normal 20.5-60.0 The Comment on above: Performed By: #### C LEONIE #### Laboratory [address] [place] [address] Dr. Elvin Levine MCH 28.8 pg Normal 26.7-34.0 [facility] Comment on above: Performed By: #### C LEONIE #### Laboratory [address] [place] [address] Dr. Elvin Levine MCHC 33.9 g/dl Normal 29.9-35.2 [facility] Comment on above: Performed By: #### C BCMAN #### Laboratory [address] [place] [address] Dr. Elvin Levine MCV 85.1 fL Normal 81.0-99.0 [facility] Comment on above: Performed By: #### C BCMAN #### Laboratory [address] [place] [address] Dr. Elvin Levine METAMYELOCYTE # Normal [facility] Comment on above: Performed By: #### C BCMAN #### Laboratory [address] [place] [address] Dr. Elvin Levine METAMYELOCYTE % Normal [facility] Comment on above: Performed By: #### C BCMAN #### Laboratory [address] [place] [address] Dr. Elvin Levine MONOM# 0.50 103/ul Normal 0.30-0.80 [facility] Comment on above: Performed By: #### C BCMAN #### Laboratory [address] [place] [address] Dr. Elvin Levine MONOM% 16.0 % Critically high 1.7-12.0 [facility] Comment on above: Performed By: #### C BCMAN #### Laboratory [address] [place] [address] Dr. Elvin Levine MPV 9.8 fL Normal 9.5-13.5 [facility] Comment on above: Performed By: #### C BCMAN #### Laboratory [address] [place] [address] Dr. Elvin Levine MYELOCYTE # Normal [facility] Comment on above: Performed By: #### C BCMAN #### Laboratory [address] [place] [address] Dr. Elvin Levine MYELOCYTE % Normal [facility] Comment on above: Performed By: #### C BCMAN #### Laboratory [address] [place] [address] Dr. Elvin Levine NRBC Normal The Comment on above: Performed By: #### C LEONIE #### Laboratory [address] [place] [address] [address] Elvin Levine PLT 250 103/ul Normal 150-450 The Comment on above: Performed By: #### C LEONIE #### Laboratory [address] [address] [address] Elvin Levine RBC 4.51 106/ul Normal 4.20-5.40 [facility] Comment on above: Performed By: #### C LEONIE #### Laboratory [address] [address] [address] Elvin Levine RDW 13.5 % Normal 11.0-15.0 [facility] Comment on above: Performed By: #### Myron HADLEY #### Laboratory [address] [address] [address] Elvin Levine SEG # 0.99 103/ul Critically low 1.40-6.50 [facility] Comment on above: Performed By: #### C LEONIE #### Laboratory [address] [address] [address] Elvin Levine SEG % 32.0 % Critically low 43.0-75.0 [facility] Comment on above: Performed By: #### C LEONIE #### Laboratory [address] [address] [address] Elvin Levine WBC 3.1 103/ul Critically low 4.0-11.0 [facility] Comment on above: Performed By: #### Myron HADLEY #### Laboratory [address] [place] [address] Dr. Elvin Levine Vital Signs Date Time Vital Sign Value Performing Clinician Facility 02-05-2025 11: Body height 160.02 cm [facility] 02-05-2025 11: Body mass index (BMI) [Ratio] 22.6 kg/m2 [facility] 02-05-2025 11:16 Body temperature 97.8 [degF] [facility] 02-05-2025 11:16-0400 Body weight 58.05 kg [facility] 02-05-2025 11:16-0400 Diastolic blood pressure 72 mm[Hg] [facility] 02-05-2025 11:16-0400 Heart rate 79 /min [facility] 02-05-2025 11:16-0400 SaO2% (BldA) [Mass fraction] 98 % [facility] 02-05-2025 11:16-0400 Systolic blood pressure 116 mm[Hg] [facility] 12-11-2024 08:31-0500 Body height 160.02 cm [facility] 12-11-2024 08:31-0500 Body mass index (BMI) [Ratio] 23.3 kg/m2 [facility] 12-11-2024 08:31-0500 Body temperature 98.4 [degF] [facility] 12-11-2024 08:31-0500 Body weight 59.64 kg [facility] 12-11-2024 08:31-0500 Diastolic blood pressure 64 mm[Hg] [facility] 12-11-2024 08:31-0500 Heart rate 87 /min [facility] 12-11-2024 08:31-0500 SaO2% (BldA) [Mass fraction] 98 % [facility] 12-11-2024 08:31-0500 Systolic blood pressure 116 mm[Hg] [facility] 07-21-2024 09:54-0400 Body mass index (BMI) [Ratio] 24.37 kg/m2 Rochelle Angela DO Work Phone: [facility] 07-21-2024 09:54-0400 Body weight 64.41 kg Rochelle Angela DO Work Phone: [facility] 07-21-2024 09:54-0400 Diastolic blood pressure 68 mm[Hg] Rochelle Angela DO Work Phone: [facility] 07-21-2024 09:54-0400 Systolic blood pressure 100 mm[Hg] Rochelle Angela DO Work Phone: [facility] 10-10-2023 13:35-0500 Body height 160.02 cm Arabella Jaleesa Other [employer] Other 10-10-2023 13:35-0500 Body mass index (BMI) [Ratio] 25.97 kg/m2 Arabella Jaleesa Other [employer] Other 10-10-2023 13:35-0500 Body temperature 98.8 [degF] Arabella Jaleesa Other [employer] Other 10-10-2023 13:35-0500 Body weight 66.5 kg Arabella Jaleesa Other [employer] Other 10-10-2023 13:35-0500 Respiratory rate 18 /min Arabella Jaleesa Other [employer] Other 10-10-2023 13:35-0500 SaO2% (BldA) [Mass fraction] 97 % Arabella Jaleesa Other [employer] Other 07-16-2023 11:35-0400 Body height 165.1 cm Arabella Jaleesa Other [employer] Other 07-16-2023 11:35-0400 Body mass index (BMI) [Ratio] 23.06 kg/m2 Arabella Jaleesa Other [employer] Other 07-16-2023 11:35-0400 Body temperature 98.2 [degF] Arabella Jaleesa Other [employer] Other 07-16-2023 11:35-0400 Body weight 62.87 kg Arabella Jaleesa Other [employer] [facility] Other 07-16-2023 11:35-0400 Respiratory rate 18 /min Arabella Jaleesa Other [employer] Other 07-16-2023 11:35-0400 SaO2% (BldA) [Mass fraction] 98 % Arabella Jaleesa Other [employer] Other 06-27-2023 11:50-0400 Body height 165.1 cm Arabella Jaleesa Other [employer] Other 06-27-2023 11:50-0400 Body mass index (BMI) [Ratio] 22.73 kg/m2 Arabella Jaleesa Other [employer] Other 06-27-2023 11:50-0400 Body temperature 99.8 [degF] Arabella Jaleesa Other [employer] Other 06-27-2023 11:50-0400 Body weight 61.96 kg Arabella Jaleesa Other [employer] Other 06-27-2023 11:50-0400 Respiratory rate 18 /min Arabella Jaleesa Other [employer] Other 06-27-2023 11:50-0400 SaO2% (BldA) [Mass fraction] 99 % Arabella Jaleesa Other [employer] Other 04-18-2023 15:45-0400 Body height 165.1 cm Arabella Jaleesa Other [employer] Other 04-18-2023 15:45-0400 Body mass index (BMI) [Ratio] 20.9 kg/m2 Arabella Jaleesa Other [employer] Other 04-18-2023 15:45-0400 Body temperature 99.5 [degF] Arabella Lazcano Other [employer] Other 04-18-2023 15:45-0400 Body weight 56.97 kg Arabella Laczano Other [employer] Other 04-18-2023 15:45-0400 Diastolic blood pressure 81 mm[Hg] Arabella Lazcano Other [employer] Other 04-18-2023 15:45-0400 Respiratory rate 18 /min Arabella Lazcano Other [employer] Other 04-18-2023 15:45-0400 SaO2% (BldA) [Mass fraction] 100 % Arabella Lazcano Other [employer] Other 04-18-2023 15:45-0400 Systolic blood pressure 121 mm[Hg] Arabella Lazcano Other [employer] Other 11-23-2022 11:30-0500 Body height 162.56 cm Suri Deidre Other [employer] Other 11-23-2022 11:30-0500 Body mass index (BMI) [Ratio] 19.05 kg/m2 Suri Deidre Other [employer] Other 11-23-2022 11:30-0500 Body temperature 98.2 [degF] Suri Jiang Other [employer] Other 11-23-2022 11:30-0500 Body weight 50.35 kg Suri Jiang Other [employer] Other 11-23-2022 11:30-0500 SaO2% (BldA) [Mass fraction] 97 % Suri Baileyault Other [employer] Other 07-04-2022 18:25-0400 Body height 160.02 cm Suri Baileyault Other [employer] Other 07-04-2022 18:25-0400 Body mass index (BMI) [Ratio] 20.05 kg/m2 Suri Baileyault Other [employer] Other 07-04-2022 18:25-0400 Body temperature 99.2 [degF] Suri Baileyault Other [employer] Other 07-04-2022 18:25-0400 Body weight 51.35 kg Suri Baileyault Other [employer] Other 07-04-2022 18:25-0400 Diastolic blood pressure 74 mm[Hg] Suri Baileyault Other [employer] Other 07-04-2022 18:25-0400 Respiratory rate 18 /min Suri Deidre Other [employer] Other 07-04-2022 18:25-0400 SaO2% (BldA) [Mass fraction] 97 % Suri Deidre Other [employer] Other 07-04-2022 18:25-0400 Systolic blood pressure 137 mm[Hg] Suri Deidre Other [employer] Other Encounters Encounter Date Encounter Type Care Provider Facility Start: 02-16-2025 End: 02-16-2025 Office outpatient visit 25 minutes Selma Lord NP Work Phone: [facility] Comment on above: Trigger index finger of right hand (Primary Dx); Finger pain, right Start: 02-16-2025 End: 02-16-2025 ambulatory SELMA LORD Not Available Start: 02-16-2025 End: 02-16-2025 Bamboo flowsheet Selma Lord PROCESS WORKER Work Phone: [facility] Start: 02-16-2025 End: 02-16-2025 Bamboo flowsheet Selma Lord PROCESS WORKER Work Phone: [facility] Start: 02-05-2025 End: 02-05-2025 ambulatory [facility] Work Phone: Start: 02-05-2025 End: 02-05-2025 Patient encounter procedure [facility] Work Phone: Start: 12-11-2024 End: 12-11-2024 ambulatory [facility] Work Phone: Start: 12-11-2024 End: 12-11-2024 Patient encounter procedure [facility] Work Phone: Start: 08-25-2024 End: 08-25-2024 Bamboo flowsheet Aguila Ulloa PROCESS WORKER Work Phone: [facility] Start: 08-25-2024 End: 08-25-2024 Bamboo flowsheet Aguila Ulloa PROCESS WORKER Work Phone: [facility] Start: 08-25-2024 End: 08-25-2024 Office outpatient new 30 minutes Aguila Ulloa PROCESS WORKER Work Phone: [facility] Comment on above: Finger pain, right ( Primary Dx); Trigger index finger of right hand Start: 08-25-2024 End: 08-25-2024 ambulatory AGUILA ULLOA Not Available Start: 07-21-2024 End: 07-21-2024 Bamboo flowsheet Rochelle Angela DO Work Phone: [facility] Start: 07-21-2024 End: 07-28-2024 Bamboo flowsheet Rochelle Angela DO Work Phone: [facility] Start: 07-21-2024 End: 07-28-2024 Clinisync Result Encounter Rochelle Angela DO Work Phone: [facility] Department Unsolicited Start: 07-21-2024 End: 07-21-2024 Patient encounter procedure Rochelle Angela DO Work Phone: [facility] Start: 07-21-2024 End: 07-21-2024 Periodic preventive med est patient 18-39 yrs Rochelle Angela DO Work Phone: [facility] Comment on above: Well woman exam with routine gynecological exam Start: 07-21-2024 End: 07-21-2024 ambulatory ROCHELLE ANGELA Not Available Start: 05-13-2024 Patient encounter status [facility] Start: 11-27-2023 End: 11-28-2023 ambulatory Neftali Clayton Facility: [facility] Start: 10-11-2023 End: 10-11-2023 ambulatory Svetlana Lemus Other [employer] Other Start: 10-11-2023 Telephone encounter Svetlana Lemus [facility] Start: 10-10-2023 End: 10-10-2023 ambulatory Arabella Lazcano Other [employer] [facility] Other Start: 10-10-2023 Office outpatient vi sit 15 minutes Arabella Lazcano [facility] Start: 09-27-2023 End: 09-28-2023 ambulatory Neftali Clayton Facility:[facility] Start: 09-10-2023 End: 09-11-2023 ambulatory Neftali Clayton Facility:[facility] Start: 08-22-2023 End: 08-23-2023 ambulatory Neftali Clayton Facility:[facility] Start: 08-16-2023 End: 08-17-2023 ambulatory Neftali Clayton Facility: [facility] Start: 08-09-2023 End: 08-10-2023 ambulatory Julieth L Rebecca Facility: [facility] Start: 07-16-2023 End: 07-16-2023 ambulatory Arabella Jaleesa Other [employer] [facility] Other Start: 07-16-2023 Office outpatient vi sit 15 minutes Arabella Jaleesa [facility] [place] Start: 07-04-2023 ambulatory Hector Ramos F acility:[facility] Start: 06-29-2023 End: 06-30-2023 ambulatory Julieth L Rebecca Facility:[facility] [place] Start: 06-27-2023 End: 06-27-2023 ambulatory Arabella Jaleesa Other [employer] Other Start: 06-27-2023 Office outpatient vi sit 15 minutes Arabella Jaleesa [facility] [place] Start: 06-26-2023 End: 06-27-2023 ambulatory Neftali Clayton Facility:[facility] [place] Start: 05-10-2023 End: 05-11-2023 ambulatory Neftali Clayton Facility:[facility] [place] Start: 04-19-2023 End: 04-20-2023 ambulatory Julieth L Rebecca Facility:[facility] [place] Start: 04-18-2023 End: 04-18-2023 ambulatory Arabella Jaleesa Other [employer] Other Start: 04-18-2023 Office outpatient vi sit 15 minutes Arabella Jaleesa [facility] [place] Start: 03-26-2023 End: 03-27-2023 ambulatory Neftali Clayton Facility: [facility] [place] Start: 02-19-2023 End: 02-20-2023 ambulatory Neftali Clayton Facility:[facility] [place] Start: 02-15-2023 ambulatory Julieth L Rebecca Facility: [facility] [place] Start: 01-18-2023 End: 01-19-2023 ambulatory Neftali Antolin Lucio Facility:[facility] [place] Start: 12-04-2022 End: 12-05-[address] ROMMEL PADILLA . Facility:[facility] Start: 11-23-2022 End: 11-23-2022 ambulatory Suri Jiang Other [employer] Other Start: 11-23-2022 Office outpatient vi sit 15 minutes Suri Jiang [facility] [place] Start: 10-06-2022 End: 10-07-[address] ROMMEL PADILLA . Facility:[facility] Start: 10-04-2022 End: 10-04-[address] ROMMEL PADILLA . Facility: Start: 07-04-2022 End: 07-04-2022 ambulatory Suri Jiang Other [employer] Other Start: 07-04-2022 Office outpatient vi sit 15 minutes Suri Baileyault [facility] [place] Start: 07-14-2021 Nursing evaluation o f patient and report Svetlana Medrano [facility] [place] Procedures Date Procedure Procedure Detail Performing Clinician Start: 02-17-2025 Injection 1 tendon sheath/ligament aponeurosis Selma Lord PROCESS WORKER Work Phone: Start: 08-25-2024 Injection 1 tendon sheath/ligament aponeurosis Aguila Ulloa PROCESS WORKER Work Phone: Start: 07-21-2024 IGP,APTIMA HPV,AGE GDLN Rochelle Millre DO Work Phone: Plan of Treatment Date Care Activity Detail Author Start: 07-23-2025 End: 07-23-2025 Patient encounter procedure 07/23/2025 8:30 AM EDT Office Visit [facility] [address] [place] [address] Rochelle Miller, DO [address] [place], [place] [id number] [facility] Start: 03-05-2025 End: 03-05-2025 Patient encounter procedure 03/05/2025 10:45 AM EDT Office Visit [facility] [address] [place] [phone] Selma Lord, PROCESS WORKER [address] [place] [address] [facility] Start: 02-16-2025 End: 02-16-2025 Patient encounter procedure 02/16/2025 2:30 PM EDT Office Visit [facility] [address] [place] [phone] Selma Lord, PROCESS WORKER [address] [place], [place] [id number] Arrived [facility] Comment on above: Arrived Start: 02-05-2025 Patient referral [facility] Work Phone: Start: 09-15-2024 End: 09-15-2024 Patient encounter procedure 09/15/2024 8:15 AM EST Office Visit [facility] [address] [facility] [address] [place] [phone] Aguila Ulloa NP [address] [place] [address] [facility] Start: 07-21-2024 End: 07-21-2024 Patient encounter procedure 07/21/2024 9:30 AM EDT Office Visit [facility] [address] [address] Rochelle Miller DO [address] [place] [address] Arrived [facility] Comment on above: Arrived Cytology Cervical or vaginal smear or scraping study Pap Smear Pathology and Cytology Routine Well woman exam with routine gynecological exam Ordered: 07/21/2024 [facility] Work Phone: Comment on above: Ordered: 07/21/2024 Patient referral [facility] Work Phone: Immunizations Immunization Date Immunization Notes Care Provider Therese galvanami 07-04-2022 tetanus toxoid, redu kristin diphtheria toxoid, and acellular pertussis vaccine, adsorbed Suri Jiang Other [facility] Payers Date Payer Category Payer Managed Care HMO (unspecified) [employer] [id number] 2025 Private Health Insurance [id number] 2024 Private Health Insurance BETH TENORIO [id number] 2024 Unknown [id number] 2023 Self-pay 2022 Medicaid [id number] 2003 Unknown [id number] 2.16.840.1.837666.3.579. 2.727 2003 Unknown [id number] 2.16.840.1.389808.3.579. 2.727 2003 Unknown [id number] 2.16.840.1.186371.3.579. 2.727 2003 Unknown [id number] 2.16.840.1.757729.3.579. 2.727 2003 Unknown [id number] 2.16.840.1.876970.3.579. 2.727 2003 Unknown [id number] 2.16.840.1.294233.3.579. 2.727 2003 Unknown [id number] 2.16.840.1.359042.3.579. 2.727 2003 Unknown [id number] 2.16.840.1.322332.3.579. 2.727 2003 Unknown [id number] 2.16.840.1.770489.3.579. 2.727 2003 Unknown [id number] 2.16.840.1.125763.3.579. 2.727 2003 Unknown [id number] 2.16.840.1.938240.3.579. 2.727 2003 Unknown [id number] 2.16.840.1.858857.3.579. 2.727 2003 Unknown [id number] 2.16.840.1.928473.3.579. 2.727 2003 Unknown [id number] 2.16.840.1.147934.3.579. 2.727 2003 Unknown [id number] 2.16.840.1.297738.3.579. 2.1259 2003 Unknown [id number] 2.16.840.1.443286.3.579. 2.1259 2003 Unknown [id number] 2.16.840.1.819551.3.579. 2.1259 1978 Unknown [id number] 2.16.840.1.574899.3.579. 2.593 1978 Unknown [id number] 2.16.840.1.772645.3.579. 2.593 1978 Unknown [id number] 2.16.840.1.908385.3.579. 2.593 1959 Unknown [id number] 2.16.840.1.782467.19 Unknown Jourdan Eli [facility] [id number] Social History Date Type Detail Facility Sex Assigned At [employer] Other Tobacco smoking status [facility] Tobacco smoking consumption unknown [facility] Start: 2003 Sex assigned at Not on file [facility] Start: 04-24-2024 Tobacco smoking status [facility] Never smoked tobacco (finding) [facility] Start: 12-11-2024 End: 02-05-2025 Sex Female (finding) [facility] Start: 2003 Sex Assigned At Female F [facility] Clinical Notes 07-14-2021 to 02-16-2025 Selma Lord NP - 02/16/2025 2:30 PM EDT Note Date & Type Note Facility 02-16-2025 History of Presen t illness Narrative Associated Order(s): Hand / UE Inj/Asp: R index A1 Post-Procedure Diagnose(s): Trigger index finger of right hand Images from the original note were not included. HISTORY OF PRESENT ILLNESS: EST PT Stephon Khan is an 19 y.o. @ female. EST PT WITH [facility]- RECHECK RT IF - GIVEN CORTISONE INJ 08/25/24 FOR TRIGGER FINGER MDP 08/12/24 CORTISONE INJ 08/25/24 CORTISONE INJ 01/2024 DR CLAYTON ONLY HAD TRIGGERING A COUPLE TIMES. WILL GET PAIN IN RT IF, MOSTLY WITH LOTS OF USE- WILL SHOOT INTO THUMB AND WRIST (FOR THE LAST 2-3 WKS). FEELS LIKE SHE CAN'T BEND FINGER. NUMBNESS IN RT IF . +NAPROXEN- NO RELIEF. +VOLTAREN AND ICE. INTERMITTENT SWELLING. OCCAS DROPS THINGS. DOES NOT WAKE AT HS. 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 RT HANDED. ALLERGIES: Allergies Allergen Reactions Prednisone Other Reaction(s): Hives Penicillin G Rash Penicillins Rash HOME MEDICATIONS: Current Outpatient Medications Medication Instructions Lo Loestrin Fe 1 MG-10 MCG / 10 MCG tablet 1 tablet, Oral, Every morning PHYSICAL EXAM: Right Hand Exam Tenderness The patient is experiencing tenderness in the palmar area. Muscle Strength Wrist extension: 5/5 Saw Filer: 4/5 Other Erythema: absent Sensation: decreased (dullness in volar aspect of PIP of RT IF) Pulse: present Comments: No catching or locking today but pain over the A1 sanju of the right index finger Vitals: There is no height or weight on file to calculate BMI. Tobacco Use: Not on file Alcohol Use: Not on file IMAGING: Hand / UE Inj/Asp: R index A1 for trigger finger on 02/17/2025 9:44 AM Indications: pain Details: 24 G needle, volar approach Medications: 20 mg methylPREDNISolone acetate 40 MG/ML Outcome: tolerated well, no immediate complications Site cleaned with isopropyl alcohol Procedure, treatment alternatives, risks and benefits explained, specific risks discussed. Consent was given by the patient. Orders Placed This Encounter Procedures Hand / UE Inj/Asp This order was created via procedure documentation ASSESSMENT: ICD-10-CM 1. Trigger index finger of right hand M65.321 2. Finger pain, right M79.644 PLAN: I reviewed exam findings with the patient and discussed treatment options, answered questions. I discussed with the patient the option of an injection and follow up in 2 weeks for RCK of numbness in her index finger. I advised the patient of risks associated with an injection including a reaction to medication, infection, failure to improve and possible worsening. The patient demonstrated understanding. Patient requesting injection. Skin Cleansed with alcohol swab. Utilizing aseptic technique patient given 20mg Depomedrol was injected into right index finger flexor tendon sheath. Patient tolerated this well. Neurovasc intact s/p injection. Post injection care instructions discussed. If still having numbness consider EMG of the right hand. Questions answered in laymen terms at the bedside. The diagnosis, home exercise plan and any ongoing restrictions/ recommendations reviewed. If unable to be reached in office, I recommend evaluation at nearest Emergency Room if any symptoms worsened or new symptoms develop for requiring urgent evaluation. Selma Lord APRN, NP-C documented in this encounter [facility] 12-11-2024 Evaluation note Diagnosis Onset Date Resolution Encounter for control acute December 11, 2024 8:24am Maxillary sinusitis acute December 11, 2024 8:24am Right trigger finger acute February 05, 2025 11:12am Tendonitis acute February 05, 2025 11:12am [facility] Work Phone: 1(367) 980-443411-18-2024 History of Present illness Narrative* Aguila Ulloa NP - 08/25/2024 8:00 AM ESTAssociated Order(s): Tendon Sheath Inj (CPT 74740 Only): R index A1 Post-Procedure Diagnose(s): Trigger index finger of right hand Images from the original note were not included. Subjective Patient ID: Stephon Khan is a 19 y.o. female. RT Hand Pt is RT handed. Pt saw her PCP on 08/12/24 c/o RT hand pain. She was put on a MDP (08/12/24), denies relief. This started Nov 2023. NKI. States she got a cortisone injection and this helped, Pain came back in July.She gets throbbing in her index finger and thumb occas goes into forearm. Denies N/T. Admits on andoff swelling. She had a cortisone injection at Dr. Clayton's office about 6 months ago (01/2024?) with relief, but notes it has been wearing off. 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 She tried voltaren w/o relief. She tries ice after work with some relief.Has tried IBU with little relief. Admits stiffness which comes and goes in the IF. She has woken upa dew times. Denies pain at rest. Pain at worst 9/10 when throbbing. Notes she drops items at work occas from trouble gripping. She has tried tape, brace w/o relief. TX: cortisone inj, PCP 08/12/24, MDP 08/12/24, voltaren gel Objective Ortho Exam Hand/Wrist Musculoskeletal Exam Inspection Right Erythema: none Ecchymosis: none Edema: none Palpation Right Triggering comment: no active triggering Index tenderness to palpation: A1 sanju I reviewed the pcp note from 08/12/24. Tendon Sheath Inj (CPT 71262 Only): R index A1 on 08/25/2024 8:56 AM Indications: pain Details: 25 G needle, volar approach Medications: 20 mg methylPREDNISolone Acetate 20 MG/ML Immediately prior to procedure a time out was called to verify the correct patient, procedure, equipment, community support worker and site/side marked as required. Patient was prepped and draped in the usual sterile fashion. Assessment/Plan Encounter Diagnoses: ICD-10-CM 1. Finger pain, right M79.644 2. Trigger index finger of right hand M65.321 Clinically she was not triggering or locking in office, she has pain over the A- 1 sanju and her subjective comments resemble that of a trigger finger. We discussed surgical and non surgical options,she notes she will try another injection and then decide from there what she would like to do. pt notes he would like an injection, side effects of bleeding and infection discussed, would like to proceed with the injection, using aspectic technique 20 mg of depo medrol was injected into the right index finger A-1 sanju tendon sheath, pt tolerated well, bandaid applied, may do activities as tolerated, f/u in 3-4 weeks. [facility] [id number] History of Present illness Narrative* Svitlana Torre LPN - 07/21/2024 9:30 AM EDT Reason for Appointment: Patient ID: Stephon Khan is a 19 y.o. female who presents for Well Women Visit Patient presents today for Annual Exam. MEDICATIONS Current Outpatient Medications Medication Instructions norethindrone-ethinyl estradiol-iron (Lo Loestrin Fe) 1 MG-10 MCG / 10 MCG tablet 1 tablet, Oral, Daily, Take 1 tablet by mouth daily ALLERGIES Allergies Allergen Reactions Prednisone Other Reaction(s): Hives Penicillin G Rash Penicillins Rash PROBLEMS Active Ambulatory Problems Diagnosis Date Noted No Active Ambulatory Problems Resolved Ambulatory Problems Diagnosis Date Noted No Resolved Ambulatory Problems No Additional Past Medical History HISTORY PAST MEDICAL HISTORY SOCIAL HISTORY History reviewed. No pertinent past medical history. Social History Tobacco Use Smoking status: Not on file Smokeless tobacco: Not on file Substance Use Topics Alcohol use: Not on file Drug use: Not on file FAMILY HISTORY Family History Problem Relation Name Age of Onset Cancer Other Both sides Hypertension Other Both sides Thyroid disease Other Dad's side SURGICAL HISTORY Past Surgical History: Procedure Laterality Date APPENDECTOMY 2013 REVIEW OF SYSTEMS Review of Systems: Review of Systems All other systems reviewed and are negative. OBJECTIVE Objective: Physical Exam Constitutional: Appearance: Normal appearance. She is well-developed. Genitourinary: Vulva normal. Breasts: Breasts are soft. Right: Normal. Left: Normal. Cardiovascular: Rate and Rhythm: Normal rate and regular rhythm. Pulmonary: Effort: Pulmonary effort is normal. Breath sounds: Normal breath sounds. Abdominal: General: Bowel sounds are normal. There is no distension. Palpations: Abdomen is soft. Tenderness: There is no abdominal tenderness. There is no guarding or rebound. Musculoskeletal: General: No swelling. Normal range of motion. Right lower leg: No edema. Left lower leg: No edema. Neurological: Mental Status: She is alert and oriented to person, place, and time. Skin: General: Skin is warm and dry. Psychiatric: Mood and Affect: Mood normal. Behavior: Behavior normal. Vitals and nursing note reviewed. Exam conducted with a coding support specialist present. Vitals: Estimated body mass index is 24.37 kg/m as calculated from the following: Height as of 11/27/23: 5' 4 . Weight as of this encounter: 142 lb. BP: 100/68 Patient's last menstrual period was 01/07/2024. ASSESSMENT & PLAN ICD-10-CM 1. Well woman exam with routine gynecological exam Z01.419 Pap Smear Annual Exam: Patient presents today for an annual exam. Patient states she is doing well and has no complaints. Pap was obtained without difficulty. Follow Up: Patient is to return in one year for annual unless needed otherwise. Documented by Svitlana Torre LPN on behalf of: Rochelle Miller DO documented in this [facility] [id number] Evaluation note* Encounter Date Diagnosis Assessment Notes Treatment Notes Treatment Clinical Notes Oct, Dental decay (ICD-10 - K02.9) Drink plenty fluids, get plenty of rest. Take the clindamycin as prescribed until gone. Rinse your mouth several times a day with warm salt water. Take Tylenol or Motrin as needed for pain. Follow-up with your dentist as soon as possible Oct, Dentalgia (ICD-10 - K08.89) [employer] Other 10-09-2023 Evaluation note* Encounter Date Diagnosis Assessment Notes Treatment Notes Treatment Clinical Notes Jul, Contact with and (suspected) exposure to covid-19 (ICD-10 - Z20.822) Jul, Acute sinusitis, recurrence not specified, unspecified location (ICD-10 - J01.90) Drink plenty fluids, get plenty of rest. Take the prednisone as prescribed until gone. Use the fluticasone nasal spray as prescribed and your symptoms improved. Take Tylenol or Motrin for aches pains or fevers. Follow-up with your family physician if no improvement in 2 to 3 days [employer] Other 09-20-2023 Evaluation note* Encounter Date Diagnosis Assessment Notes Treatment Notes Treatment Clinical Notes Jun, Cellulitis of left lower leg (ICD-10 - L03.116) Drink plenty fluids, get plenty of rest. Take the cephalexin as prescribed until gone. Apply warm compresses to the areas. Follow-up with your family physician if no improvement in 2 to 3 days. Take Tylenol or Motrin as needed for aches pains or fevers. Jun, Cellulitis of right lower leg (ICD-10 - L03.115) [employer] Other 07-12-2023 Evaluation note* Encounter Date Diagnosis Assessment Notes Treatment Notes Treatment Clinical Notes Apr, Cellulitis of popliteal region (ICD-10 - L03.119) Drink plenty fluids, get plenty of rest. Continue home medications as prescribed. Take the cephalexin as prescribed until gone. Apply warm compresses to the areas 2-3 times a day. Follow-up with your family physician if no improvement in 2 to 3 days [employer] Other 02-16-2023 Evaluation note* Encounter Date Diagnosis Assessment Notes Treatment Notes Treatment Clinical Notes Nov, Nausea (ICD-10 - R11.0) Nausea can be caused because of symptoms of other illnesses, gastro related viruses, headaches, etc. Use medication as directed. Encourage fluid intake and try to start with small sips of fluid. Watch for signs and symptoms of dehydration including decrease in urine output, dry mucus membranes, etc. Fluid intake is more important than food intake. Follow up with primary care provider if no improvement of symptoms within the next few days. Seek emergency treatment if signs of dehydration occur such as decrease in urine, dry mouth, etc Nov, AARON (generalized anxiety disorder) (ICD-10 - F41.1) USe this medication as discussed until you see your PCP next week [employer] Other 09-27-2022 Evaluation note* Encounter Date Diagnosis Assessment Notes Treatment Notes Treatment Clinical Notes Jun, Cat bite, initial encounter (ICD-10 - W55.01XA) Special dressing applied today in office; Keep special dressing of for at least 24 hours or longer if able. May use warm compresses daily to clean area and use gentle cleanser to clean area. Do not recommend any harsh soaps. Use medication as directed. Contact office or follow up with your primary care provider if symptoms of infection occur such as increased pain or tenderness, redness or swelling, or drainage of area. Tdap updated in office today [employer] Other 10-07-2021 Evaluation note* Encounter Date Diagnosis Assessment Notes Treatment Notes Treatment Clinical Notes Jul, Contact with and (suspected) exposure to other viral communicable diseases (ICD-10 - Z20.828) Jul, Other Additional time spent conducting pre-visit phone call, screening for symptoms, instructions on social distancing, application and removal of PPE, and cleaning of examination room, equipment and supplies was preformed. Patient education given for testing methodology and results. Patient care instructions given in writting by [facility] document. [employer] Other Evaluation noteNo InformationNort [facility] Other Evaluation note* Diagnosis Well woman exam with routine gynecological exam Routine gynecological examination documented in this encounter [facility]* Diagnosis Finger pain, right- Primary Pain in soft tissues of limb Trigger index finger of right hand documented in this encounter [facility]* Diagnosis Onset Date Resolution Status Admit Date Encounter for control acute December 11, 2024 8:24am Maxillary sinusitis acute December 11, 2024 8:24am [facility] [employer] Work Phone: Evaluation note* Diagnosis Trigger index finger of right hand- Primary Finger pain, right Pain in soft tissues of limb documented in this encounter [facility] HealthcareHistory general Narrative - Reported* Type Description Date Surgical History Appendectomy [employer] Other History general Narrative - Reported* Type Description Date Medical History anxiety Surgical History Appendectomy [employer] Other Hospital Discharge instructionsAmbulatory Orders* Referral to Orthopedic Surgery Time Frame: 02/05/25, Location: None Selected [facility] Work Phone: Summary Purpose Family History No Family History Records Found Relationship Condition Age at Onset Recorded Date/T heaven Not Specified Diabetes mellitus Unknown Malignant neoplasm of breast Unknown Disorder of thyroid Unknown Advance Directives No Advanced Directives Records Found Advance Directive Response Recorded Date/ Time Advance Directives No April 17 9:18am Chief Complaint and Reason for Visit Chief Complaint Admit Date having multiple migraine, heat flashes, nasal neil December 11, 2024 8:24am Reason for Visit Admit Date Encounter for control December 11, 2 025 8:24am Maxillary sinusitis December 11, 2024 8:24 am Chief Complaint Admit Date having multiple migraine, heat flashes, nasal neil December 11, 2024 8:24am Trigger finger pain February 05, 2025 11:12a m Reason for Visit Admit Date Encounter for control December 11, 2 025 8:24am Maxillary sinusitis December 11, 2024 8:24 am Right trigger finger February 05, 2025 11:12 am Tendonitis February 05, 2025 11:12a m Additional Source Comments REASON FOR VISIT (unrecogniz ed section and content) Reason Comments Well Women Visit Reason Comments Pain Reason Comments Pain INFORMATION SOURCE (unrecogn ized section and content) DATE CREATED AUTHOR 12/09/2022 [facility] [place] [facility] DATE CREATED AUTHOR AUTHOR'S ORGANIZ ATION 11/16/2023 [facility] DATE CREATED AUTHOR AUTHOR'S ORGANIZ ATION 01/11/2024 [facility] DATE CREATED AUTHOR AUTHOR'S ORGANIZ ATION 02/17/2025 [facility] dical Specialists EPIC Care Teams (unrecognized sec tion and content) [employer] Repairer Relationship Specialty Start Date End Date Neftali Clayton MD PCP - General Family Medicine 07/09/23 [employer] Relationship Specialty Start Date End Date Neftali Clayton MD PCP - General Family Medicine 07/09/23 [employer] Repairer Relationship Specialty Start Date End Date Neftali Clayton MD PCP - General Family Medicine 07/09/23 [employer] Repairer Relationship Specialty Start Date End Date Michelle Hackett NP [address] [facility] [place] [address] [place] [address] Referring Physician Family Medicine 08/25/24 [employer] Rep[employer]r Relationship Specialty Start Date End Date Michelle Hackett NP [address] [facility] [place] [address] [place] [address] Referring Physician Family Medicine 08/25/24 Team Status: Active Member Role Status Dates Michelle Hackett APRN PROCESS WORKER-C Primary Care Provider Active Team Status: Inactive Member Role Status Dates Michelle Hackett APRN PROCESS WORKER-C Primary Care Provider, Attending Provider Active Start: December 11, 2024 End: December 11, 2024 Team Status: Inactive Member Role Status Dates Michelle Hackett APRN PROCESS WORKER-C Primary Care Provider, Attending Provider Active Start: February 05, 2025 End: February 05, 2025 [employer] Repairer Relationship Specialty Start Date End Date Michelle Hackett NP 39 [address] [place], [place] [id number] Referring Physician Family Medicine 08/25/24 Goals (unrecognized section and content) Goals may be documented in a n alternate section FOR RECORDS PERTAINING TO PATIENTS WHO ARE OR HAVE BEEN ENROLLED IN A CHEMICAL DEPENDENCY/SUBSTANCEABUSE PROGRAM, SOME INFORMATION MAY BE OMITTED. This clinical summary was aggregated from multiple sources. Caution should be exercised in using it in the provision of clinical care. This summary normalizes information from multiple sources, and as a consequence, information in this document may materially change the coding, format and clinical context of patient data. In addition, data may be omitted in some cases. CLINICAL DECISIONS SHOULD BE BASED ON THE PRIMARY CLINICAL RECORDS. [employer] provides no warranty or guarantee of the accuracy or completeness of information in this document.
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
[2025-03-06] MEDS: ONDANSETRON 4 MG RAPDIS TABLET SL (21:33)
[2025-03-06] MEDS: ACETAMINOPHEN 500 MG TABLET PO (21:34)
[2025-03-06] MEDS: METHOCARBAMOL 500 MG TABLET PO (21:34)
== END 2025-03-06 23:52 | disposition home or self-care (01) ==
PROVIDERS: Emergency Provider Emergency Medicine; PCP Nurse Practitioner Family
DX: S39.012A Strain of muscle, fascia and tendon of lower back, initial encounter (principal); M79.651 Pain in right thigh; S16.1XXA Strain of muscle, fascia and tendon at neck level, initial encounter; V49.40XA Driver injured in collision with unspecified motor vehicles in traffic accident, initial encounter; R51.9 Headache, unspecified; R11.0 Nausea; M54.2 Cervicalgia
CPT/HCPCS: 72100; 99284; Q0162